=== PATIENT | female | born 1970 | race African-American/Black ===

== ENCOUNTER 2022-05-18 18:19 | Outpatient (REF) | payer OTHER, SELFPAY ==
[2022-05-18 18:45] LABS: COVID-19 Test Positive (Negative); IDNOW Serial# 16C4AD1C
== END 2022-05-18 18:20 | disposition home or self-care (01) ==
LOC: HO.LAB 18:19
PROVIDERS: Visit Provider Internal Medicine
DX: Z20.822 Contact with and (suspected) exposure to COVID-19 (principal)
CPT/HCPCS: 87635

== ENCOUNTER 2022-06-03 12:17 | Emergency (ER) | payer OTHER, SELFPAY ==
--- NOTE | 2022-06-03 12:23 | ED_ITS ---
HPI - General Adult General Chief complaint: Ear Problems Stated complaint: R ear bleeding/Nose bleeding Time Seen by Provider: 06/03/22 12:27 Source: patient Mode of arrival: ambulatory History of Present Illness HPI narrative: 51-year-old female with a past medical history of anxiety, asthma, GERD, Russel's, SLE, COVID-19 positive 05/07/2022, presenting to the ED complaining of right ear pain, & bloody discharge x3 days. Also reports intermittent right nare epistaxis x3 days. Denies fever, chills, worsening cough, SOB/CP, travel. Onset (ago): day(s) Related Data Home Medications Medication Instructions Recorded Confirmed albuterol sulfate 90 mcg/actuation 2 puff inhalation Q6H PRN 03/13/22 03/13/22 aerosol inhaler (ProAir HFA) fluticasone propionate 110 2 puff inhalation BID 03/13/22 03/13/22 mcg/actuation HFA aerosol inhaler (Flovent HFA) triamcinolone acetonide 55 mcg 1 spray intranasal DAILY 03/13/22 03/13/22 nasal spray aerosol (Nasacort) Previous Rx's Medication Instructions Recorded amoxicillin 875 mg-potassium 1 tab PO BID 7 days #14 tabs 06/03/22 clavulanate 125 mg tablet ciprofloxacin 0.3 %-dexamethasone 4 drp otic (ears) BID 7 days #7.5 06/03/22 0.1 % ear drops,suspension mL (Ciprodex) fluticasone propionate 50 2 spray intranasal DAILY #16 grams 06/03/22 mcg/actuation nasal spray,suspension (Flonase Allergy Relief) Allergies Allergy/AdvReac Type Severity Reaction Status Date / Time No Known Allergies Allergy Verified 03/13/22 06:59 Review of Systems Review of Systems: Constitutional: No Fever, No Chills ENT/Mouth: + Ear Pain, + Nasal Congestion, No Sinus Pain, No Hoarseness, No sore throat, + Rhinorrhea, No Swallowing Difficulty Cardiovascular: No Chest Pain, No SOB Respiratory: + Cough, No Sputum, No Wheezing Gastrointestinal: No Nausea, No Vomiting, No Diarrhea, No Constipation, No Abdominal pain Genitourinary: No Dysuria, No Urinary Frequency, No Hematuria, No Flank Pain Musculoskeletal: No joint pain, No Myalgias, No Joint Swelling Skin: No Skin Lesions, No rash Neuro: No Weakness Yes all other systems are reviewed and are negative Constitutional: Constitutional: Reports as per [facility] Past Medical History Attestation statement: The following information was validated with the patient. Medical History Abnormal chest CT Allergic rhinitis Anxiety Asthma Complete situs inversus with dextrocardia Consolidation lung COVID GERD (gastroesophageal reflux disease) H/O Russel thyroiditis Menorrhagia Organic depressive disorder Pleural effusion SLE (systemic lupus erythematosus) Vitamin D deficiency Surgical History H/O tubal ligation History of esophagogastroduodenoscopy (EGD) Presence of silicone breast implant Family History Family History Mother Asthma CAD (coronary artery disease) Myocardial infarct Hypertension Hypercholesteremia Sister Arthritis Sister Diabetes Social History Social History Advance Directives: No Advance Directives Information Provided: Yes Physical Exam ED Vital Signs: Vital Signs - 24 hr 06/03/22 12:25 Temperature 98.9 F Pulse Rate 75 Respiratory Rate 18 Blood Pressure 114/58 L Pulse Oximetry 99 Oxygen Delivery Method Room Air BMI result Body Mass Index 17.7 Const General: cooperative, healthy appearing and no acute distress Orientation/consciousness: patient oriented x3 Limitations: no limitations HENMT Other: +congestion Head: Yes normal to inspection and Yes atraumatic Ears: hearing grossly normal bilaterally, mastoids normal, Abnormal EAC present EAC tenderness on the right and otic discharge bloody and purulent and TM abnormal erythematous on the right, with fluid behind the TM on the right and with loss of landmarks General nose exam: Normal external nose present, no nasal discharge noted, no epistaxis and Other nasal findings present (Small/clotted abrasion noted to right anterior nare without active bleeding) Face and sinus: Yes normal facial exam Mouth: Normal oral and palatal mucosa present and no drooling Throat: Yes posterior oropharynx normal, Yes tonsils normal, No uvula midline, No peritonsillar mass and No uvula laterally displaced Eyes General: appearance normal, both eyes and all related structures EOM: EOMs intact bilaterally Neck Neck: Yes normal visual inspection and Yes no meningeal signs Resp Effort & Inspection: normal respiratory effort and no respiratory distress Auscultation: clear to auscultation bilaterally Cardio Rate: regular rate Heart sounds: S1 normal heart sound present and S2 normal heart sound present Skin Rashes: no rashes Wounds: no wounds Neuro General: patient oriented x3, tone normal and no meningeal signs Gait exam (Neuro): Normal gait present Extrem General: Yes normal to inspection Medical Decision Making Medical Decision Making MDM Narrative: 51-year-old female with a past medical history of anxiety, asthma, GERD, Russel's, SLE, COVID-19 positive 05/07/2022, presenting to the ED complaining of right ear pain, & bloody discharge x3 days. On exam vital signs stable, NAD, nontoxic appearing, no active epistaxis at this time. Right TM with noted effusion and external auditory swelling/discharge. Mastoids WNL, or pharynx WNL, uvula midline, talking in complete sentences. Concern for otitis media/externa and viral syndrome. 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 antibiotics, otic drops, PCP follow-up Results discussed with patient including worrisome signs and symptoms and strict return precautions, and when to return to the emergency department. They verbalized understanding and feel safe for discharge at this time. Differential Diagnosis Differential Diagnoses: The differential diagnosis associated with the presentation includes as above Discharge Plan Discharge Clinical Impression: Otitis externa, Otitis media Patient Disposition: Home, Self-Care Instructions: Otitis Externa (ED), Ear Infection (ED) Additional Instructions: You have an internal and external ear infection. Ciprodex is an antibiotic drop with steroid, use as prescribed. In addition Augmentin is antibiotic Flonase as a nasal decongestant Rest. Stay hydrated Follow-up with her doctor If symptoms persist or worsen return to the ED Prescriptions: New ciprofloxacin-dexamethasone [Ciprodex] 0.3-0.1 % drops,suspension 4 drp otic (ears) BID 7 Days Qty: 7.5 0RF fluticasone propionate [Flonase Allergy Relief] 50 mcg/actuation spray,suspension 2 spray intranasal DAILY Qty: 16 0RF Rx Instructions: administer into each nostril amoxicillin-pot clavulanate 875-125 mg tablet 1 tab PO BID 7 Days Qty: 14 0RF No Action albuterol sulfate [ProAir HFA] 90 mcg/actuation HFA aerosol inhaler 2 puff inhalation Q6H PRN fluticasone propionate [Flovent HFA] 110 mcg/actuation HFA aerosol inhaler 2 puff inhalation BID triamcinolone acetonide [Nasacort] 55 mcg aerosol,spray 1 spray intranasal DAILY Rx Instructions: administer into each nostril Referrals: Physician,Unknown J [Physician] - 3 days Stand Alone Forms: Work/School Release
[2022-06-03 12:25] VITALS: BP 114/58; PULSE 75; RESP 18; TEMP 37.2; O2SAT 99; BMI 17.7
== END 2022-06-03 12:57 | disposition home or self-care (01) ==
PROVIDERS: Emergency Provider Emergency Medicine; PCP Physician Assistant
DX: H60.91 Unspecified otitis externa, right ear (principal); H66.91 Otitis media, unspecified, right ear; I10 Essential (primary) hypertension; E78.00 Pure hypercholesterolemia, unspecified
CPT/HCPCS: 99282; 99283

== ENCOUNTER 2022-08-07 19:31 | Emergency (ER) | payer OTHER, SELFPAY ==
--- NOTE | ~2022-08-07 | US_ITS ---
EXAMINATION: US ABDOMEN LIMITED CLINICAL INFORMATION: Increased liver function tests. COMPARISON: None available. TECHNIQUE: Real-time imaging of the right upper quadrant abdominal viscera. FINDINGS: PANCREAS: Normal. LIVER: The liver is normal in size. The liver contour is normal. Parenchymal echogenicity is normal. There are multiple simple cysts, the largest within the left lobe measuring 1.2 cm in maximal diameter. There is no intrahepatic biliary duct dilatation seen. GALLBLADDER: Normal. The gallbladder is physiologically distended without evidence of stones, sludge, polyps, wall thickening or pericholecystic fluid. COMMON BILE DUCT: Normal in caliber measuring 0.3 cm in diameter. LEFT KIDNEY: Normal. No hydronephrosis. No renal calculi or focal parenchymal lesions. The kidney measures 9.9 cm in maximum dimension. FREE FLUID: None. OTHER: A situs inversus is noted. US/US abdomen limited IMPRESSION: 1. Multiple benign, simple hepatic cysts are incidentally noted, for which no imaging follow-up is recommended. 2. There is a situs inversus. 3. Otherwise, unremarkable examination.
--- NOTE | 2022-08-07 19:34 | ECG_ITS ---
Test Reason : CHEST PRESSURE Blood Pressure : / mmHG Vent. Rate : 107 BPM Atrial Rate : 107 BPM P-R Int : 156 ms QRS Dur : 052 ms QT Int : 294 ms P-R-T Axes : 099 197 096 degrees QTc Int : 392 ms Suspect limb lead reversal, interpretation assumes no reversal Sinus tachycardia Possible Left atrial enlargement Low voltage QRS Anterolateral infarct , age undetermined Abnormal ECG No previous ECGs available Referred By: Doron Bonilla Electronically Signed By:Mor Chris
[2022-08-07 19:51] VITALS: BP 132/74; PULSE 116; RESP 20; TEMP 38; O2SAT 93; BMI 17.7
--- NOTE | 2022-08-07 19:52 | ED.GENADULT ---
HPI - General Adult General Chief complaint: Upper Respiratory Symptoms <MAYURI Ham - Last Filed: 08/07/22 19:55> Stated complaint: Chest Pressure/ Cough <MAYURI Ham - Last Filed: 08/07/22 19:55> Time Seen by Provider: 08/07/22 21:31 <MAYURI Ham - Last Filed: 08/07/22 19:55> Source: patient <Momo Machado MD - Last Filed: 08/07/22 23:12> Mode of arrival: ambulatory <Momo Machado MD - Last Filed: 08/07/22 23:12> Limitations: no limitations <Momo Machado MD - Last Filed: 08/07/22 23:12> History of Present Illness HPI narrative: Patient history of asthma, lupus, arthritis comes here for cough for last 5 days and mid chest pain and cough cough is mostly dry 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 Patient had lab workup done which showed elevated LFTs. Patient denies any abdominal pain no history of hepatitis no prior elevated liver function test no nausea no vomiting no Tylenol intake <Momo Machado MD - Last Filed: 08/07/22 23:12> Related Data Home medications: Home Medications Medication Instructions Recorded Confirmed albuterol sulfate 90 mcg/actuation 2 puff inhalation Q6H PRN 03/13/22 03/13/22 aerosol inhaler (ProAir HFA) fluticasone propionate 110 2 puff inhalation BID 03/13/22 03/13/22 mcg/actuation HFA aerosol inhaler (Flovent HFA) triamcinolone acetonide 55 mcg 1 spray intranasal DAILY 03/13/22 03/13/22 nasal spray aerosol (Nasacort) Previous Rx's Medication Instructions Recorded amoxicillin 875 mg-potassium 1 tab PO BID 7 days #14 tabs 06/03/22 clavulanate 125 mg tablet ciprofloxacin 0.3 %-dexamethasone 4 drp otic (ears) BID 7 days #7.5 06/03/22 0.1 % ear drops,suspension mL (Ciprodex) fluticasone propionate 50 2 spray intranasal DAILY #16 grams 06/03/22 mcg/actuation nasal spray,suspension (Flonase Allergy Relief) benzonatate 200 mg capsule 200 mg PO TID PRN cough #30 caps 08/07/22 prednisone 20 mg tablet 40 mg PO DAILY #10 tabs 08/07/22 <MAYURI Ham - Last Filed: 08/07/22 19:55> Allergies/adverse reactions: Allergies Allergy/AdvReac Type Severity Reaction Status Date / Time No Known Allergies Allergy Verified 08/07/22 19:55 <MAYURI Ham - Last Filed: 08/07/22 19:55> Review of Systems Review of Systems: Yes all other systems are reviewed and are negative <Momo Machado MD - Last Filed: 08/07/22 23:12> [facility] Past Medical History Medical History: Medical History (Updated 08/07/22 @ 23:12 by Momo Machado MD) Abnormal chest CT Allergic rhinitis Anxiety Asthma Complete situs inversus with dextrocardia Consolidation lung COVID GERD (gastroesophageal reflux disease) H/O Russel thyroiditis Menorrhagia Organic depressive disorder Pleural effusion Situs inversus SLE (systemic lupus erythematosus) Vitamin D deficiency <MAYURI Ham - Last Filed: 08/07/22 19:55> Surgical History: Surgical History H/O tubal ligation History of esophagogastroduodenoscopy (EGD) Presence of silicone breast implant <MAYURI Ham - Last Filed: 08/07/22 19:55> Family History Family History: Family History Mother Asthma CAD (coronary artery disease) Myocardial infarct Hypertension Hypercholesteremia Sister Arthritis Sister Diabetes <MAYURI Ham - Last Filed: 08/07/22 19:55> Social History Social History: Social History Advance Directives: No Advance Directives Information Provided: No <MAYURI Ham - Last Filed: 08/07/22 19:55> Physical Exam ED Vital Signs: Vital Signs - 24 hr 08/07/22 19:51 08/07/22 22:43 Temperature 100.4 F Pulse Rate 116 H 86 Respiratory Rate 20 22 H Blood Pressure 132/74 99/60 Pulse Oximetry 93 93 Oxygen Delivery Method Room Air Room Air BMI result Body Mass Index 17.7 <MAYURI Ham - Last Filed: 08/07/22 19:55> Vital Signs - 24 hr 08/07/22 19:51 08/07/22 22:43 Temperature 100.4 F Pulse Rate 116 H 86 Respiratory Rate 20 22 H Blood Pressure 132/74 99/60 Pulse Oximetry 93 93 Oxygen Delivery Method Room Air Room Air BMI result Body Mass Index 17.7 <Momo Machado MD - Last Filed: 08/07/22 23:12> Appearance: Alert. Oriented X3. No acute distress. Situs inversus Eyes: No pallor/ icterus ENT: Pharynx normal. Oral Mucosa moist Neck: Normal inspection. Neck supple. CVS: Normal heart rate and rhythm. Pulses normal. Respiratory: No respiratory distress. Equal air entry bilateral, no wheezing/rales/rhonchi Abdomen: Soft and nontender. Bowel sounds are present, no mass palpable, no CVA tenderness Skin: Skin warm and dry. Normal skin color. Normal skin turgor. Extremities: No lower extremity edema. No calf tenderness Neuro: Oriented X 3. <Momo Machado MD - Last Filed: 08/07/22 23:12> Course Course Course Narrative: This is an RME: Additional HPI, ROS, PE not included below will be deferred to primary provider. 51 year old female with PMHH of asthma, SLE, and arthritis presents to the ED with chest pain, cough and headache. Patient reports she has been using her albuterol inhaler more frequently since her symptoms started. She denies sick contacts or recent travel. Patient reports she has not been eating normally, and her symptoms are exacerbated by coughing. PE: Fever at 100.4F, slightly tachycardic, suspected from viral illness unlikely sepsis Plan: Labs, tylenol ordered <MAYURI Ham - Last Filed: 08/07/22 19:55> Medications Administered Discontinued Medications Generic Name Dose Route Start Last Admin Trade Name Freq PRN Reason Stop Dose Admin Acetaminophen 650 mg 08/07/22 19:54 08/07/22 20:54 Acetaminophen 325 Mg Tablet PO 08/07/22 19:55 650 mg ONCE ONE Administration Benzonatate 200 mg 08/07/22 21:43 08/07/22 22:03 Benzonatate 100 Mg Capsule PO 08/07/22 21:44 200 mg ONCE ONE Administration Prednisone 40 mg 08/07/22 21:43 08/07/22 22:03 Prednisone 20 Mg Tablet PO 08/07/22 21:44 40 mg ONCE ONE Administration <MAYURI Ham - Last Filed: 08/07/22 19:55> Medications Administered Discontinued Medications Generic Name Dose Route Start Last Admin Trade Name Lokesh PRN Reason Stop Dose Admin Acetaminophen 650 mg 08/07/22 19:54 08/07/22 20:54 Acetaminophen 325 Mg Tablet PO 08/07/22 19:55 650 mg ONCE ONE Administration Benzonatate 200 mg 08/07/22 21:43 08/07/22 22:03 Benzonatate 100 Mg Capsule PO 08/07/22 21:44 200 mg ONCE ONE Administration Prednisone 40 mg 08/07/22 21:43 08/07/22 22:03 Prednisone 20 Mg Tablet PO 08/07/22 21:44 40 mg ONCE ONE Administration <Momo Machado MD - Last Filed: 08/07/22 23:12> Medical Decision Making Lab Data Result Diagrams: 08/07/22 20:53 08/07/22 20:53 <MAYURI Ham - Last Filed: 08/07/22 19:55> Labs: Lab Results 08/07/22 08/07/22 08/07/22 Range/Units 20:53 20:53 20:53 WBC 6.6 (4.8-10.8) X10*3/uL RBC 3.68 L (4.20-5.50) X10*6/uL Hgb 11.9 L (12.0-16.0) g/dl Hct 34.9 L (37.0-47.0) % MCV 94.8 (80.0-98.0) fL MCH 32.3 (27.0-33.0) pg MCHC 34.1 (31.0-35.0) g/dl RDW 14.4 (11.0-16.0) % Plt Count 87 L (160-400) X10*3/uL MPV 12.7 H (9.4-12.3) fL Immature Gran % (Auto) 0.2 (0.0-0.4) % Neut % (Auto) 62.0 (45-73) % Lymph % (Auto) 25.2 (20-40) % [place] % (Auto) 11.5 H (2-11) % Eos % (Auto) 0.8 (0-4) % Baso % (Auto) 0.3 (0-2) % Lymph # (Auto) 1.7 (1.2-4.9) X10*3/uL [place] # (Auto) 0.8 (0.1-1.2) X10*3/uL Eos # (Auto) 0.1 (0.0-0.4) X10*3/uL Baso # (Auto) 0.0 (0.0-0.2) X10*3/uL Abs Immat Gran (auto) 0.01 (0.00-0.03) X10*3/uL Absolute Neuts (auto) 4.1 (2.0-8.3) x10*3/uL Absolute Nucleated RBC 0.000 (0.0-0.012) X10*3/uL Nucleated RBC % (auto) 0.0 (0.0-0.2) /100WBC Sodium 140 (135-145) mmol/L Potassium 4.2 (3.3-5.1) mmol/L Chloride 104 (96-108) mmol/L Carbon Dioxide 27 (22-29) mmol/L Anion Gap 13 (12-20) BUN 13 (9-16) mg/dL Creatinine 0.82 (0.5-1.4) mg/dL Estim Creat Clear Calc 63.2 Estimated GFR > 60 Random Glucose 84 (60-115) mg/dL Calcium 9.7 (8.4-10.2) mg/dL Magnesium 1.9 (1.6-2.6) mg/dL Total Bilirubin 1.0 (0.0-1.0) mg/dL AST 200 H (5-31) U/L ALT 207 H (0-31) U/L Alkaline Phosphatase 169 H (39-117) U/L Troponin I High Sens < 2.7 (<3.5-17.0) ng/L B-Natriuretic Peptide (<100) pg/mL Total Protein 7.0 (6.5-8.0) g/dL Albumin 3.7 (3.5-5.0) g/dL COVID-19 (HIGINIO) (Negative) COVID-19 Clin Com Influenza Type A (WALTER) (Negative) Influenza Type B (WALTER) (Negative) Influenza A & B Note 08/07/22 08/07/22 08/07/22 Range/Units 20:53 20:53 20:54 WBC (4.8-10.8) X10*3/uL RBC (4.20-5.50) X10*6/uL Hgb (12.0-16.0) g/dl Hct (37.0-47.0) % MCV (80.0-98.0) fL MCH (27.0-33.0) pg MCHC (31.0-35.0) g/dl RDW (11.0-16.0) % Plt Count (160-400) X10*3/uL MPV (9.4-12.3) fL Immature Gran % (Auto) (0.0-0.4) % Neut % (Auto) (45-73) % Lymph % (Auto) (20-40) % [place] % (Auto) (2-11) % Eos % (Auto) (0-4) % Baso % (Auto) (0-2) % Lymph # (Auto) (1.2-4.9) X10*3/uL [place] # (Auto) (0.1-1.2) X10*3/uL Eos # (Auto) (0.0-0.4) X10*3/uL Baso # (Auto) (0.0-0.2) X10*3/uL Abs Immat Gran (auto) (0.00-0.03) X10*3/uL Absolute Neuts (auto) (2.0-8.3) x10*3/uL Absolute Nucleated RBC (0.0-0.012) X10*3/uL Nucleated RBC % (auto) (0.0-0.2) /100WBC Sodium (135-145) mmol/L Potassium (3.3-5.1) mmol/L Chloride (96-108) mmol/L Carbon Dioxide (22-29) mmol/L Anion Gap (12-20) BUN (9-16) mg/dL Creatinine (0.5-1.4) mg/dL Estim Creat Clear Calc Estimated GFR Random Glucose (60-115) mg/dL Calcium (8.4-10.2) mg/dL Magnesium (1.6-2.6) mg/dL Total Bilirubin (0.0-1.0) mg/dL AST (5-31) U/L ALT (0-31) U/L Alkaline Phosphatase (39-117) U/L Troponin I High Sens (<3.5-17.0) ng/L B-Natriuretic Peptide 23 (<100) pg/mL Total Protein (6.5-8.0) g/dL Albumin (3.5-5.0) g/dL COVID-19 (HIGINIO) Negative (Negative) COVID-19 Clin Com See Note Influenza Type A (WALTER) Negative (Negative) Influenza Type B (WALTER) Negative (Negative) Influenza A & B Note See Note <MAYURI Ham - Last Filed: 08/07/22 19:55> Lab Results 08/07/22 08/07/22 08/07/22 Range/Units 20:53 20:53 20:53 WBC 6.6 (4.8-10.8) X10*3/uL RBC 3.68 L (4.20-5.50) X10*6/uL Hgb 11.9 L (12.0-16.0) g/dl Hct 34.9 L (37.0-47.0) % MCV 94.8 (80.0-98.0) fL MCH 32.3 (27.0-33.0) pg MCHC 34.1 (31.0-35.0) g/dl RDW 14.4 (11.0-16.0) % Plt Count 87 L (160-400) X10*3/uL MPV 12.7 H (9.4-12.3) fL Immature Gran % (Auto) 0.2 (0.0-0.4) % Neut % (Auto) 62.0 (45-73) % Lymph % (Auto) 25.2 (20-40) % [place] % (Auto) 11.5 H (2-11) % Eos % (Auto) 0.8 (0-4) % Baso % (Auto) 0.3 (0-2) % Lymph # (Auto) 1.7 (1.2-4.9) X10*3/uL [place] # (Auto) 0.8 (0.1-1.2) X10*3/uL Eos # (Auto) 0.1 (0.0-0.4) X10*3/uL Baso # (Auto) 0.0 (0.0-0.2) X10*3/uL Abs Immat Gran (auto) 0.01 (0.00-0.03) X10*3/uL Absolute Neuts (auto) 4.1 (2.0-8.3) x10*3/uL Absolute Nucleated RBC 0.000 (0.0-0.012) X10*3/uL Nucleated RBC % (auto) 0.0 (0.0-0.2) /100WBC Sodium 140 (135-145) mmol/L Potassium 4.2 (3.3-5.1) mmol/L Chloride 104 (96-108) mmol/L Carbon Dioxide 27 (22-29) mmol/L Anion Gap 13 (12-20) BUN 13 (9-16) mg/dL Creatinine 0.82 (0.5-1.4) mg/dL Estim Creat Clear Calc 63.2 Estimated GFR > 60 Random Glucose 84 (60-115) mg/dL Calcium 9.7 (8.4-10.2) mg/dL Magnesium 1.9 (1.6-2.6) mg/dL Total Bilirubin 1.0 (0.0-1.0) mg/dL AST 200 H (5-31) U/L ALT 207 H (0-31) U/L Alkaline Phosphatase 169 H (39-117) U/L Troponin I High Sens < 2.7 (<3.5-17.0) ng/L B-Natriuretic Peptide (<100) pg/mL Total Protein 7.0 (6.5-8.0) g/dL Albumin 3.7 (3.5-5.0) g/dL COVID-19 (HIGINIO) (Negative) COVID-19 Clin Com Influenza Type A (WALTER) (Negative) Influenza Type B (WALTER) (Negative) Influenza A & B Note 08/07/22 08/07/22 08/07/22 Range/Units 20:53 20:53 20:54 WBC (4.8-10.8) X10*3/uL RBC (4.20-5.50) X10*6/uL Hgb (12.0-16.0) g/dl Hct (37.0-47.0) % MCV (80.0-98.0) fL MCH (27.0-33.0) pg MCHC (31.0-35.0) g/dl RDW (11.0-16.0) % Plt Count (160-400) X10*3/uL MPV (9.4-12.3) fL Immature Gran % (Auto) (0.0-0.4) % Neut % (Auto) (45-73) % Lymph % (Auto) (20-40) % [place] % (Auto) (2-11) % Eos % (Auto) (0-4) % Baso % (Auto) (0-2) % Lymph # (Auto) (1.2-4.9) X10*3/uL [place] # (Auto) (0.1-1.2) X10*3/uL Eos # (Auto) (0.0-0.4) X10*3/uL Baso # (Auto) (0.0-0.2) X10*3/uL Abs Immat Gran (auto) (0.00-0.03) X10*3/uL Absolute Neuts (auto) (2.0-8.3) x10*3/uL Absolute Nucleated RBC (0.0-0.012) X10*3/uL Nucleated RBC % (auto) (0.0-0.2) /100WBC Sodium (135-145) mmol/L Potassium (3.3-5.1) mmol/L Chloride (96-108) mmol/L Carbon Dioxide (22-29) mmol/L Anion Gap (12-20) BUN (9-16) mg/dL Creatinine (0.5-1.4) mg/dL Estim Creat Clear Calc Estimated GFR Random Glucose (60-115) mg/dL Calcium (8.4-10.2) mg/dL Magnesium (1.6-2.6) mg/dL Total Bilirubin (0.0-1.0) mg/dL AST (5-31) U/L ALT (0-31) U/L Alkaline Phosphatase (39-117) U/L Troponin I High Sens (<3.5-17.0) ng/L B-Natriuretic Peptide 23 (<100) pg/mL Total Protein (6.5-8.0) g/dL Albumin (3.5-5.0) g/dL COVID-19 (HIGINIO) Negative (Negative) COVID-19 Clin Com See Note Influenza Type A (WALTER) Negative (Negative) Influenza Type B (WALTER) Negative (Negative) Influenza A & B Note See Note <Momo Machado MD - Last Filed: 08/07/22 23:12> Discharge Plan Discharge Clinical Impression: Bronchitis <MAYURI Ham - Last Filed: 08/07/22 19:55> Patient Disposition: Home, Self-Care <MAYURI Ham - Last Filed: 08/07/22 19:55> Instructions: Acute Bronchitis (ED) <MAYURI Ham - Last Filed: 08/07/22 19:55> Additional Instructions: Take prednisone continue to use inhaler and take cough drops as prescribed Incidentally noticed that your liver enzymes are elevated 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 <MAYURI Ham - Last Filed: 08/07/22 19:55> Prescriptions: New benzonatate 200 mg capsule 200 mg PO TID PRN (Reason: cough) Qty: 30 0RF prednisone 20 mg tablet 40 mg PO DAILY Qty: 10 0RF No Action ciprofloxacin-dexamethasone [Ciprodex] 0.3-0.1 % drops,suspension 4 drp otic (ears) BID 7 Days Qty: 7.5 0RF fluticasone propionate [Flonase Allergy Relief] 50 mcg/actuation spray,suspension 2 spray intranasal DAILY Qty: 16 0RF Rx Instructions: administer into each nostril amoxicillin-pot clavulanate 875-125 mg tablet 1 tab PO BID 7 Days Qty: 14 0RF albuterol sulfate [ProAir HFA] 90 mcg/actuation HFA aerosol inhaler 2 puff inhalation Q6H PRN fluticasone propionate [Flovent HFA] 110 mcg/actuation HFA aerosol inhaler 2 puff inhalation BID triamcinolone acetonide [Nasacort] 55 mcg aerosol,spray 1 spray intranasal DAILY Rx Instructions: administer into each nostril <MAYURI Ham - Last Filed: 08/07/22 19:55> Referrals: Lily Lofton MD [Physician] - 1 week <MAYURI Ham - Last Filed: 08/07/22 19:55>
--- NOTE | 2022-08-07 20:05 | ECG_ITS ---
Test Reason : REPEAT RT SIDED EKG Blood Pressure : / mmHG Vent. Rate : 110 BPM Atrial Rate : 110 BPM P-R Int : 146 ms QRS Dur : 062 ms QT Int : 308 ms P-R-T Axes : 102 177 112 degrees QTc Int : 416 ms Suspect limb lead reversal, interpretation assumes no reversal Sinus tachycardia Septal infarct (cited on or before 07-AUG-2022) Lateral infarct (cited on or before 07-AUG-2022) Abnormal ECG When compared with ECG of 07-AUG-2022 20:00, Serial changes of Septal infarct Present Referred By: Doron Bonilla Electronically Signed By:Mor Chris
[2022-08-07] MEDS: Acetaminophen 325 MG TABLET 650 MG PO (20:54)
[2022-08-07 21:06] LABS: MANUAL DIFF FLAG NO
[2022-08-07 21:15] LABS: Basophils Percent Auto 0.3 % (0-2); Eosinophils Absolute Auto 0.1 X10*3/uL (0.0-0.4); Eosinophils Percent Auto 0.8 % (0-4); Hematocrit 34.9 % (37.0-47.0); Hemoglobin 11.9 g/dl (12.0-16.0); Imm Gran Abs Auto 0.01 X10*3/uL (0.00-0.03); Imm Gran Pct Auto 0.2 % (0.0-0.4); Lymphocytes Absolute Auto 1.7 X10*3/uL (1.2-4.9); Lymphocytes Percent Auto 25.2 % (20-40); Mean Corpuscular HGB Conc 34.1 g/dl (31.0-35.0); Mean Corpuscular Hemoglobin 32.3 pg (27.0-33.0); Mean Corpuscular Volume 94.8 fL (80.0-98.0); Mean Platelet Volume 12.7 fL (9.4-12.3); Monocytes Absolute Auto 0.8 X10*3/uL (0.1-1.2); Monocytes Percent Auto 11.5 % (2-11); Neutrophils Absolute Auto 4.1 x10*3/uL (2.0-8.3); Red Blood Count 3.68 X10*6/uL (4.20-5.50); Red Cell Distribution Width 14.4 % (11.0-16.0); White Blood Count 6.6 X10*3/uL (4.8-10.8)
[2022-08-07 21:16] LABS: Platelet Count 87 X10*3/uL (160-400)
[2022-08-07 21:20] LABS: IDNOW Serial# 08D9AD1C; Influenza A Negative (Negative); Influenza B2 Negative (Negative)
[2022-08-07 21:20] LABS: COVID-19 Test Negative (Negative); IDNOW Serial# BCCEAD1C
[2022-08-07 21:24] LABS: Alanine Aminotransferase 207 U/L (0-31); Albumin Level 3.7 g/dL (3.5-5.0); Alkaline Phosphatase 169 U/L (39-117); Anion Gap 13 (12-20); Aspartate Amino Transferase 200 U/L (5-31); Blood Urea Nitrogen 13 mg/dL (9-16); Calcium 9.7 mg/dL (8.4-10.2); Carbon Dioxide 27 mmol/L (22-29); Chloride 104 mmol/L (96-108); Creatinine Clr Calc Pharmacy 63.2; Estimated Glomerular Filt Rate > 60; Glucose Random 84 mg/dL (60-115); Magnesium 1.9 mg/dL (1.6-2.6); Potassium 4.2 mmol/L (3.3-5.1); Sodium 140 mmol/L (135-145)
[2022-08-07 21:30] LABS: B Type Natriuretic Peptide 23 pg/mL (<100)
[2022-08-07 21:34] LABS: Troponin-I High Sensitivity < 2.7 ng/L (<3.5-17.0)
[2022-08-07] MEDS: Benzonatate 100 MG CAPSULE 200 MG PO (22:03)
[2022-08-07] MEDS: predniSONE 20 MG TABLET 40 MG PO (22:03)
[2022-08-07 22:43] VITALS: BP 99/60; PULSE 86; RESP 22; O2SAT 93
== END 2022-08-07 23:20 | disposition home or self-care (01) ==
PROVIDERS: Physician Assistant; Emergency Provider Internal Medicine; PCP Physician Assistant
DX: J40 Bronchitis, not specified as acute or chronic (principal); R00.0 Tachycardia, unspecified; R74.8 Abnormal levels of other serum enzymes; Z20.822 Contact with and (suspected) exposure to COVID-19; Z79.899 Other long term (current) drug therapy
CPT/HCPCS: 76705; 80053; 83735; 83880; 84484; 85025; 87502; 87635; 93005; 99284

== ENCOUNTER 2023-06-07 15:25 | Emergency (ER) | payer OTHER, SELFPAY ==
--- NOTE | ~2023-06-07 | CT_ITS ---
EXAMINATION: CT HEAD WITHOUT CONTRAST CLINICAL INFORMATION: Head injury, headache COMPARISON: None available. TECHNIQUE: Contiguous axial imaging was performed from the skull base to vertex without intravenous administration of contrast. This CT examination was performed using dose optimization techniques as appropriate, variously including the following: *Automated exposure control *Adjustment of mA and/or kV according to patient size (this includes techniques or standardized protocols for targeted exams where dose is matched to indication/reason for exam; i.e. extremities or head) *Use of iterative reconstruction technique DLP: 583 mGy-cm FINDINGS: There is no evidence of acute intracranial hemorrhage or edematous territorial infarction. No abnormal mass effect or midline shift is seen. [place] to white matter differentiation is well preserved. No abnormal extra-axial fluid collections are identified. The ventricles are normal in size. No abnormal attenuation in the brain parenchyma. The cerebellum is appropriately positioned. Basal cisterns are patent. No acute calvarial fracture.. Paranasal sinuses and mastoid air cells are well-aerated. CT/CT head/brain wo IV con IMPRESSION: No CT evidence of acute intracranial hemorrhage or edematous territorial infarction.
[2023-06-07 15:27] VITALS: BP 134/62; PULSE 86; RESP 18; TEMP 36.4; O2SAT 100; BMI 19.4
--- NOTE | 2023-06-07 15:27 | ED_ITS ---
HPI - General Adult General Chief complaint: Head Injury Stated complaint: hit head while working/[employer] [facility] Time Seen by Provider: 06/07/23 15:59 Source: patient Mode of arrival: ambulatory Limitations: language barrier (Maori-speaking medical intern utilized) History of Present Illness HPI narrative: Patient is a 52-year-old female presenting to emergency department for evaluation of headache. Reports 4 days ago while at work sustained a head strike accidentally by bumping it on a shelf, denies any loss consciousness. Continues to have a persistent frontal headache 10/10 relieved with acetaminophen, blurry vision. Denies neck pain, dizziness, vomiting, numbness or tingling of extremities. Related Data Home Medications Medication Instructions Recorded Confirmed albuterol sulfate 90 mcg/actuation 2 puff inhalation Q6H PRN 03/13/22 03/13/22 aerosol inhaler (ProAir HFA) fluticasone propionate 110 2 puff inhalation BID 03/13/22 03/13/22 mcg/actuation HFA aerosol inhaler (Flovent HFA) triamcinolone acetonide 55 mcg 1 spray intranasal DAILY 03/13/22 03/13/22 nasal spray aerosol (Nasacort) Previous Rx's Medication Instructions Recorded amoxicillin 875 mg-potassium 1 tab PO BID 7 days #14 tabs 06/03/22 clavulanate 125 mg tablet ciprofloxacin 0.3 %-dexamethasone 4 drp otic (ears) BID 7 days #7.5 06/03/22 0.1 % ear drops,suspension mL (Ciprodex) fluticasone propionate 50 2 spray intranasal DAILY #16 grams 06/03/22 mcg/actuation nasal spray,suspension (Flonase Allergy Relief) benzonatate 200 mg capsule 200 mg PO TID PRN cough #30 caps 08/07/22 prednisone 20 mg tablet 40 mg (2 x 20 mg) PO DAILY #10 tabs 08/07/22 Allergies Allergy/AdvReac Type Severity Reaction Status Date / Time No Known Allergies Allergy Verified 08/07/22 19:55 Review of Systems Review of Systems: Yes all other systems are reviewed and are negative [facility] Past Medical History Attestation statement: The following information was validated with the patient. 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 Vitamin D deficiency GERD (gastroesophageal reflux disease) H/O Russel thyroiditis SLE (systemic lupus erythematosus) Anxiety Organic depressive disorder Menorrhagia Pleural effusion Consolidation lung Abnormal chest CT Allergic rhinitis Asthma COVID Surgical History H/O tubal ligation Presence of silicone breast implant History of esophagogastroduodenoscopy (EGD) Family History Family History Mother Asthma CAD (coronary artery disease) Myocardial infarct Hypertension Hypercholesteremia Sister Arthritis Sister Diabetes Social History Social History Advance Directives: No Advance Directives Information Provided: No Physical Exam ED Vital Signs: Vital Signs - 24 hr 06/07/23 15:27 Temperature 97.5 F Pulse Rate 86 Respiratory Rate 18 Blood Pressure 134/62 Pulse Oximetry 100 Oxygen Delivery Method Room Air BMI result Body Mass Index 19.4 Appearance: Alert.?Oriented to person, place and time. No acute d istress.?Normal affect. Head: Normocephalic Eyes: Pupils equal, round and reactive to light. EOMI. Conjunctiva and sclera normal? No Urias sign noted. No raccoon eyes noted ENT: No septal hematoma, nares patent bilaterally. External auditory canal normal tympanic membrane pearly small and intact bilaterally. Dentition normal, no fractured teeth. No lesions or lacerations of oropharynx. Uvula midline. Moist mucous membranes. Neck: Normal inspection.? Neck supple.??No palpable tenderness, step-off, deformities. CVS: Heart sounds normal. Normal heart rate and rhythm.? Pulses normal.?? Respiratory: No respiratory distress.? Lung sounds clear to auscultation bila terally?? Abdomen: Soft and non-tender. Normoactive bowel sounds. ?? Skin: Skin warm and dry.? Normal skin color.? Normal skin turgor.?? Extremities: No lower extremity edema.? Neuro: Moves all extremities spontaneously. Sensation intact bilaterally. CN II- XII intact. No focal neuro deficits. Medications Administered Discontinued Medications Generic Name Dose Route Start Last Admin Trade Name Freq PRN Reason Stop Dose Admin Acetaminophen/Butalbital/Caffeine 1 tab 06/07/23 15:59 06/07/23 16:11 Butalb/Acetamin/Caff 50/325/40 Tablet PO 06/07/23 16:00 1 tab ONCE ONE Administration Medical Decision Making Medical Decision Making [facility] Narrative: Patient is a 52-year-old female who presents emergency department for evaluation of intractable headache x4 days after head injury with associated intermittent blurred vision. She has no focal neurological deficits upon examination. Clinically have low suspicion for any ICH/SDH, patient felt strongly about having CT scan obtained due to work related injury, expressed concern for exposure to radiation, but continues to request CT scan. This was obtained and there is no evidence of acute intracranial abnormality. Provided with Fioricet had good relief advised outpatient follow-up with [facility], strict return precautions, all questions answered. Stable for discharge Differential Diagnosis Differential Diagnoses: The differential diagnosis associated with the presentation includes (Likely concussion, doubt ICH/SDH) Admission/Observation Consideration of admission/observation: Escalation of care including admission/observation considered (See narrative above) Independent Interpretation I performed an independent interpretation of an: CT Scan (No ICH no fracture) Radiology Impression Discussion of test interpretation with radiology: I have reviewed the radiologist's reading. Radiologist Impression: CT/CT head/brain wo IV con IMPRESSION: No CT evidence of acute intracranial hemorrhage or edematous territorial infarction. External Record Review External record reviewed: Outpatient record Prescription Management I considered prescription management with: Pain Medication Discharge Plan Discharge Clinical Impression: Concussion without loss of consciousness Patient Disposition: Home, Self-Care Instructions: Concussion (ED), Post Concussion Syndrome (ED) Prescriptions: No Action ciprofloxacin-dexamethasone [Ciprodex] 0.3-0.1 % drops,suspension 4 drp otic (ears) BID 7 Days Qty: 7.5 0RF fluticasone propionate [Flonase Allergy Relief] 50 mcg/actuation spray,suspension 2 spray intranasal DAILY Qty: 16 0RF Rx Instructions: administer into each nostril amoxicillin-pot clavulanate 875-125 mg tablet 1 tab PO BID 7 Days Qty: 14 0RF benzonatate 200 mg capsule 200 mg PO TID PRN (Reason: cough) Qty: 30 0RF prednisone 20 mg tablet 40 mg PO DAILY Qty: 10 0RF albuterol sulfate [ProAir HFA] 90 mcg/actuation HFA aerosol inhaler 2 puff inhalation Q6H PRN fluticasone propionate [Flovent HFA] 110 mcg/actuation HFA aerosol inhaler 2 puff inhalation BID triamcinolone acetonide [Nasacort] 55 mcg aerosol,spray 1 spray intranasal DAILY Rx Instructions: administer into each nostril Referrals: [facility] [Provider Group] Kim Chaney PA [Primary Care Provider] -
[2023-06-07] MEDS: Butalb/Acetamin/Caff 50/325/40 TABLET 1 TAB PO (16:11)
== END 2023-06-07 17:08 | disposition home or self-care (01) ==
PROVIDERS: Emergency Provider Emergency Medicine; PCP Physician Assistant
DX: S06.0X0A Concussion without loss of consciousness, initial encounter (principal); R51.9 Headache, unspecified; Y29.XXXA Contact with blunt object, undetermined intent, initial encounter; Y93.9 Activity, unspecified; Y92.89 Other specified places as the place of occurrence of the external cause; Y99.0 Civilian activity done for income or pay
CPT/HCPCS: 70450; 99283; 99284

== ENCOUNTER → 2023-06-10 14:09 | Outpatient (BNVA) | payer OTHER, SELFPAY | PROVIDERS: PCP Physician Assistant; Visit Provider Physician Assistant | DX: Z13.89 Encounter for screening for other disorder (principal) | CPT/HCPCS: 99203 ==

== ENCOUNTER → 2023-06-15 14:25 | Outpatient (BNVA) | payer OTHER, SELFPAY | PROVIDERS: PCP Physician Assistant; Visit Provider Physician Assistant Medical | DX: Z13.89 Encounter for screening for other disorder (principal) | CPT/HCPCS: 99213 ==

== ENCOUNTER 2023-07-10 15:04 | Emergency (ER) | payer OTHER, SELFPAY ==
--- NOTE | ~2023-07-10 | XR_ITS ---
EXAMINATION: XR CHEST CLINICAL INFORMATION: Shortness of breath. Cough. COMPARISON: Abdominal ultrasound July 2022 TECHNIQUE: 2 views of the chest were obtained. FINDINGS: There is a right-sided aortic arch and cardiac apex. The stomach bubble is on the right. Findings are suggestive of situs inversus. The lungs are clear. No pleural effusion or pneumothorax. Bony structures are unremarkable. XR/XR chest 2V IMPRESSION: Situs inversus otherwise unremarkable examination.
[2023-07-10 15:22] VITALS: BP 122/78; PULSE 86; RESP 22; TEMP 36.6; O2SAT 94; BMI 19.4
--- NOTE | 2023-07-10 15:23 | ED_ITS ---
HPI - URI/Sore Throat General Chief Complaint: Upper Respiratory Symptoms Stated Complaint: Asthma Time Seen by Provider: 07/10/23 15:31 Source: patient and RN notes reviewed Mode of arrival: ambulatory Limitations: no limitations History of Present Illness HPI Narrative: 52 year old female with pmhx significant for asthma, allergic rhinitis, GERD, anxiety, SLE presents to the ED today for evaluation of shortness of breath, progressively worsening over the last week. She endorses associated dry cough. No sputum production. Admits that her symptoms are worse at night. She has been using her albuterol inhaler at home without much relief. She does not use a spacer with this. She last used her inhaler last night. Also endorses tactile fevers at night. No documented temperature. Denies known sick contacts. Denies inhaling any chemicals. Denies sore throat, ear pain, eye pain, chest pain, nausea, vomiting, diarrhea. Denies recent travel or long car rides. Related Data Home Medications Medication Instructions Recorded Confirmed albuterol sulfate 90 mcg/actuation 2 puff inhalation Q6H PRN 03/13/22 03/13/22 aerosol inhaler (ProAir HFA) fluticasone propionate 110 2 puff inhalation BID 03/13/22 03/13/22 mcg/actuation HFA aerosol inhaler (Flovent HFA) triamcinolone acetonide 55 mcg 1 spray intranasal DAILY 03/13/22 03/13/22 nasal spray aerosol (Nasacort) Previous Rx's Medication Instructions Recorded amoxicillin 875 mg-potassium 1 tab PO BID 7 days #14 tabs 06/03/22 clavulanate 125 mg tablet ciprofloxacin 0.3 %-dexamethasone 4 drp otic (ears) BID 7 days #7.5 06/03/22 0.1 % ear drops,suspension mL (Ciprodex) fluticasone propionate 50 2 spray intranasal DAILY #16 grams 06/03/22 mcg/actuation nasal spray,suspension (Flonase Allergy Relief) benzonatate 200 mg capsule 200 mg PO TID PRN cough #30 caps 08/07/22 prednisone 20 mg tablet 40 mg (2 x 20 mg) PO DAILY #10 tabs 08/07/22 naproxen 500 mg tablet 500 mg PO BID PRN pain #30 tabs 06/10/23 benzonatate 100 mg capsule 100 mg PO BID PRN cough #20 caps 07/10/23 prednisone 20 mg tablet 40 mg (2 x 20 mg) PO DAILY 5 days 07/10/23 #10 tabs Allergies Allergy/AdvReac Type Severity Reaction Status Date / Time No Known Allergies Allergy Verified 07/10/23 15:25 Review of Systems Review of Systems: Constitutional: No fever, chills, fatigue, night sweats, weight changes ENT/Mouth: No ear pain, hearing loss, nasal congestion, sinus pain, rhinorrhea, sore throat Eyes: No eye pain, swelling, redness, vision changes, discharge Cardio: No chest pain, palpitations, GOODE, orthopnea, peripheral edema Pulm: No sputum, wheezing, dyspnea, hemoptysis, +cough, +sob GI: No nausea, vomiting, hematemesis, abdominal pain, diarrhea, constipation, hematochezia, melena : No irregular bleeding, dysuria, frequency, urgency, hesitancy, hematuria, flank pain, urinary flow changes, urinary incontinence or retention MSK: No back pain, neck pain, joint pain, myalgias Skin: No lesions, rashes Neuro: No weakness, numbness, paresthesias, LOC, dizziness, headache Psych: No anxiety/panic, depression, SI/HI, AH/VH All other systems reviewed and are negative. [facility] Past Medical History Attestation statement: The following information was validated with the patient. 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 Vitamin D deficiency GERD (gastroesophageal reflux disease) H/O Russel thyroiditis SLE (systemic lupus erythematosus) Anxiety Organic depressive disorder Menorrhagia Pleural effusion Consolidation lung Abnormal chest CT Allergic rhinitis Asthma COVID Surgical History H/O tubal ligation Presence of silicone breast implant History of esophagogastroduodenoscopy (EGD) Family History Family History Mother Asthma CAD (coronary artery disease) Myocardial infarct Hypertension Hypercholesteremia Sister Arthritis Sister Diabetes Social History Social History Advance Directives: No Advance Directives Information Provided: Yes Physical Exam Vital Signs: Vital Signs: Last Vital Signs Temp 98.3 F 07/10/23 16:31 Pulse 96 07/10/23 16:31 Resp 24 H 07/10/23 16:31 BP 126/65 07/10/23 16:31 Pulse Ox 99 07/10/23 16:31 O2 Del Method Room Air 07/10/23 16:31 BMI result Body Mass Index 19.4 Patient tachypneic, vitals otherwise WNL. Const: General: cooperative, healthy appearing, comfortable and no acute distress Orientation/consciousness: patient oriented x3 Limitations: no limitations HEENT: Other: Posterior oropharynx without erythema or edema. No tonsillar exudates. No peritonsillar masses. Uvula midline. Controlling secretions and speaking complete sentences. Airway patent. Head: Yes normal to inspection, Yes No palpable skull fracture present, Yes normocephalic and Yes atraumatic Ears: hearing grossly normal bilaterally, external ears normal, TM's normal bilaterally, EAC's normal, mastoids normal and no periauricular adenopathy Eyes: General: appearance normal, both eyes and all related structures Conjunctivae: conjunctivae normal Sclerae: sclerae normal Pupils: Equal, round and reactive pupils present EOM: EOMs intact bilaterally Neck: Neck: Yes normal visual inspection, Yes full ROM, Yes no lymphadenopathy and Yes no JVD Chest: Chest palpation & inspection: normal inspection of the chest and normal palpation of entire chest wall Resp: Other: + slight inspiratory wheezes noted to ri ght lung. Left lung clear to auscultation. Effort & Inspection: normal respiratory effort, Actively coughing, no respiratory distress, no stridor, no tripod positioning and no use of accessory muscles Auscultation: no crackles and no rhonchi Cardio: Jugular venous distension: no JVD Rate: regular rate Rhythm: regular rhythm Skin: General skin exam: no rashes or lesions noted Neuro: General: patient oriented x3 and gait normal Cranial nerves: Yes Equal, round and reactive pupils present Extrem: General: Yes normal to inspection, Yes capillary refill normal and Yes no calf tenderness Course Course Course Narrative: This is an RME: Additional HPI, ROS, PE not included below will be deferred to primary provider. Patient is a 52-year-old female who presents to the emergency department, Reports shortness of breath, progressively worsening over the past week with associated cough. Symptoms are worse at night. She has been using albuterol inhaler without much improvement. Reports tactile fevers. Plan: Viral panel, CXR Reevaluation(s) Reevaluation #1: 1630-- patient has tested negative for COVID, flu, RSV. Chest x-ray shows situs inversus, no focal consolidations or infiltrates to suggest pneumonia. No signs of pleural effusion. > on re-evaluation, patient states her breathing has significantly improved with breathing treatment and Decadron. lungs are now CTA b/l. no increased effort of breathing. Informed her of all workup results. I believe she had an asthma attack. Respiratory therapist educated patient on albuterol use along with spacer. Will send prednisone to pharmacy. Patient has remained stable throughout ED visit today. She is currently slightly tachycardic to 96 bpm, likely secondary to breathing treatment. Discussed worrisome signs and symptoms and when to return to the ED. All questions answered at this time. Patient is agreeable with disposition and stable for discharge. Medications Administered Discontinued Medications Generic Name Dose Route Start Last Admin Trade Name Freq PRN Reason Stop Dose Admin Albuterol Sulfate 2 puff 07/10/23 16:01 07/10/23 16:06 Albuterol Sulfate 90 Mcg 8 Gm Inhaler INHALE 07/10/23 16:02 2 puff ONCE ONE Administration Dexamethasone Sodium Phosphate 10 mg 07/10/23 15:53 07/10/23 16:10 Dexamethasone Sod Phosphate 10 Mg/Ml Vial IVPUSH 07/10/23 15:54 10 mg ONCE ONE Administration Medical Decision Making Medical Decision Making MDM Narrative: 52 year old female with pmhx significant for asthma, allergic rhinitis, GERD, anxiety, SLE presents to the ED today for evaluation of shortness of breath, progressively worsening over the last week. Patient slightly tachypneic to 22. She is afebrile. Vitals otherwise WNL. She is actively coughing on exam however she is not in any acute distress. Nontoxic appearing. Airways patent. She is controlling secretions and speaking in full sentences. Lungs with slight inspiratory wheezes to the right. Left lung clear to auscultation. No increased effort of breathing. No signs of respiratory distress. Posterior oropharynx without erythema or edema. No tonsillar exudates. No peritonsillar masses. Uvula midline. No rashes. Differential diagnosis includes viral syndrome, pneumonia, asthma exacerbation, bronchitis. Lower suspicion for pleural effusion, PE, aspiration pneumonia, acute respiratory distress syndrome. Plan for viral swabs, CXR, RT breathing treatment and re-evaluation. Differential Diagnosis Differential Diagnoses: The differential diagnosis associated with the presentation includes As above Admission/Observation Not indicated Lab Data MDM Lab Attestation statement: I reviewed the patient's lab results. as above. Labs: Lab Results 07/10/23 Range/Units 15:31 Influenza Type A (PCR) NEGATIVE (Negative) Influenza Type B (PCR) NEGATIVE (Negative) RSV RNA Qual (PCR) NEGATIVE (Negative) SARS-CoV-2 RNA (RT-PCR) NEGATIVE (Negative) Independent Interpretation I performed an independent interpretation of an: Plain X-Ray Interpretation: I personally reviewed chest x-ray and agree with radiologist's interpretation Radiology Impression Discussion of test interpretation with radiology: I have reviewed the radiologist's reading. Radiologist Impression: EXAMINATION: XR CHEST CLINICAL INFORMATION: Shortness of breath. Cough. COMPARISON: Abdominal ultrasound July 2022 TECHNIQUE: 2 views of the chest were obtained. FINDINGS: There is a right-sided aortic arch and cardiac apex. The stomach bubble is on the right. Findings are suggestive of situs inversus. The lungs are clear. No pleural effusion or pneumothorax. Bony structures are unremarkable. XR/XR chest 2V IMPRESSION: Situs inversus otherwise unremarkable examination. External Record Review External record reviewed: Inpatient record Prescription Management I considered prescription management with: Other (Prednisone, Tessalon Perles) Chronic Conditions Patient?s care impacted by: Other (asthma) Social Determinants Patient?s care significantly limited by Social Determinants of Health including: Other Social Determinant of Health Critical Care Time Critical Care Time Total Critical Care Time: 45 Attestation: Critical care time in the amount of 45 minutes has been provided to the patient in terms of direct patient care, frequent reevaluation, review and interpretation of medical data and results, and management of potentially life- threatening conditions. This is all outside of any medical procedures. Discharge Plan Discharge Clinical Impression: Asthma exacerbation Patient Disposition: Home, Self-Care Instructions: Asthma (ED), How to Use a Metered-Dose Inhaler and a Spacer (ED) Additional Instructions: You tested negative for COVID, flu, RSV. Your chest x-ray does not demonstrate signs of pneumonia or fluid. Your shortness of breath improved with breathing treatment and steroids today. Prednisone as a steroid that has been sent to your pharmacy. Take this as directed over the next 5 days. You were already given a steroid in the ED today so began this prescription tomorrow. Carlos Almaraz have been sent to your pharmacy to help with cough. Follow-up with PCP as needed. Return with new or worsening symptoms. In the case of an emergency call 911. Prescriptions: New prednisone 20 mg tablet 40 mg PO DAILY 5 Days Qty: 10 0RF benzonatate 100 mg capsule 100 mg PO BID PRN (Reason: cough) Qty: 20 0RF No Action ciprofloxacin-dexamethasone [Ciprodex] 0.3-0.1 % drops,suspension 4 drp otic (ears) BID 7 Days Qty: 7.5 0RF fluticasone propionate [Flonase Allergy Relief] 50 mcg/actuation spray,suspension 2 spray intranasal DAILY Qty: 16 0RF Rx Instructions: administer into each nostril amoxicillin-pot clavulanate 875-125 mg tablet 1 tab PO BID 7 Days Qty: 14 0RF benzonatate 200 mg capsule 200 mg PO TID PRN (Reason: cough) Qty: 30 0RF prednisone 20 mg tablet 40 mg PO DAILY Qty: 10 0RF albuterol sulfate [ProAir HFA] 90 mcg/actuation HFA aerosol inhaler 2 puff inhalation Q6H PRN fluticasone propionate [Flovent HFA] 110 mcg/actuation HFA aerosol inhaler 2 puff inhalation BID triamcinolone acetonide [Nasacort] 55 mcg aerosol,spray 1 spray intranasal DAILY Rx Instructions: administer into each nostril naproxen 500 mg tablet 500 mg PO BID PRN (Reason: pain) Qty: 30 0RF Referrals: Kim Chaney PA [Primary Care Provider] - Stand Alone Forms: Work/School Release
[2023-07-10] MEDS: Albuterol Sulfate 90 MCG 8 GM INHALER 2 PUFF INHALE (16:06)
[2023-07-10 16:07] VITALS: PULSE 70; RESP 18; O2SAT 98
[2023-07-10] MEDS: dexAMETHasone sod phosphate 10 MG/ML VIAL IVPUSH (16:10)
[2023-07-10 16:18] LABS: Influenza A PCR NEGATIVE (Negative); Influenza B PCR NEGATIVE (Negative); Resp Syncy Virus RNA Qual PCR NEGATIVE (Negative); SARS COV2 PCR INHOUSE NEGATIVE (Negative)
[2023-07-10 16:31] VITALS: BP 126/65; PULSE 96; RESP 24; TEMP 36.8; O2SAT 99
[2023-07-10 16:59] VITALS: BP 126/65; PULSE 96; RESP 24; TEMP 36.8; O2SAT 99
== END 2023-07-10 17:00 | disposition home or self-care (01) ==
PROVIDERS: Nurse Practitioner Family; Emergency Provider Emergency Medicine Emergency Medical Services; PCP Physician Assistant
DX: J45.901 Unspecified asthma with (acute) exacerbation (principal); R06.02 Shortness of breath; R05.9 Cough, unspecified; Z11.52 Encounter for screening for COVID-19; Z20.822 Contact with and (suspected) exposure to COVID-19; Z79.899 Other long term (current) drug therapy
CPT/HCPCS: 0241U; 71046; 94640; 94664; 99283; 99284; J1100

== ENCOUNTER 2023-07-18 14:01 | Emergency (ER) | payer OTHER, SELFPAY ==
[2023-07-18 14:30] VITALS: BP 114/73; PULSE 116; RESP 20; TEMP 36.9; O2SAT 98; BMI 18.3
[2023-07-18 15:12] LABS: COVID-19 Test Negative (Negative); IDNOW Serial# 08D9AD1C; IDNOW Serial# 152EDE1D; Influenza A Negative (Negative); Influenza B2 Negative (Negative)
--- NOTE | 2023-07-18 15:14 | ED_ITS ---
HPI - URI/Sore Throat General Chief Complaint: Upper Respiratory Symptoms Stated Complaint: Ear ache and throat soreness Time Seen by Provider: 07/18/23 16:32 Source: patient Mode of arrival: ambulatory Limitations: no limitations History of Present Illness HPI Narrative: 52-year-old female presents to the ER for evaluation of 1 week of not feeling well. She states she was seen here recently for asthma exacerbation. After that she went home and she thinks her daughter got her sick with a virus. She reports sore throat with painful swallowing. She also reports bilateral ear pain and a headache. She has a stuffy and runny nose. She denies a cough or chest pain. No shortness of breath, nausea, vomiting, abdominal pain. No dizziness or lightheadedness. MD elicited complaint: sore throat and nasal congestion Pertinent past history: asthma Onset (ago): day(s) Consistency: progressively worsening Severity: moderate Description of mucous: clear Able to tolerate fluids by mouth: Yes Exacerbating factors: swallowing Relieving factors: nothing Context: sick contacts Associated symptoms: headache, nasal congestion and sore throat Treatments prior to arrival: none Related Data Home Medications ?Medication ?Instructions ?Recorded ?Confirmed albuterol sulfate 90 mcg/actuation 2 puff inhalation Q6H PRN 03/13/22 03/13/22 aerosol inhaler (ProAir HFA) fluticasone propionate 110 2 puff inhalation BID 03/13/22 03/13/22 mcg/actuation HFA aerosol inhaler (Flovent HFA) triamcinolone acetonide 55 mcg 1 spray intranasal DAILY 03/13/22 03/13/22 nasal spray aerosol (Nasacort) Previous Rx's ?Medication ?Instructions ?Recorded amoxicillin 875 mg-potassium 1 tab PO BID 7 days #14 tabs 06/03/22 clavulanate 125 mg tablet ciprofloxacin 0.3 %-dexamethasone 4 drp otic (ears) BID 7 days #7.5 06/03/22 0.1 % ear drops,suspension mL (Ciprodex) fluticasone propionate 50 2 spray intranasal DAILY #16 grams 06/03/22 mcg/actuation nasal spray,suspension (Flonase Allergy Relief) benzonatate 200 mg capsule 200 mg PO TID PRN cough #30 caps 08/07/22 prednisone 20 mg tablet 40 mg (2 x 20 mg) PO DAILY #10 tabs 08/07/22 naproxen 500 mg tablet 500 mg PO BID PRN pain #30 tabs 06/10/23 benzonatate 100 mg capsule 100 mg PO BID PRN cough #20 caps 07/10/23 prednisone 20 mg tablet 40 mg (2 x 20 mg) PO DAILY 5 days 07/10/23 #10 tabs Allergies Allergy/AdvReac Type Severity Reaction Status Date / Time No Known Allergies Allergy Verified 07/18/23 14:32 Review of Systems Review of Systems: Yes all other systems are reviewed and are negative [facility] Past Medical History Medical History 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 Vitamin D deficiency GERD (gastroesophageal reflux disease) H/O Russel thyroiditis SLE (systemic lupus erythematosus) Anxiety Organic depressive disorder Menorrhagia Pleural effusion Consolidation lung Abnormal chest CT Allergic rhinitis Asthma COVID Surgical History H/O tubal ligation Presence of silicone breast implant History of esophagogastroduodenoscopy (EGD) Family History Family History Mother Asthma CAD (coronary artery disease) Myocardial infarct Hypertension Hypercholesteremia Sister Arthritis Sister Diabetes Social History Social History Advance Directives: No Advance Directives Information Provided: Yes Physical Exam Vital Signs: Vital Signs: Last Vital Signs Temp 98 F 07/18/23 17:32 Pulse 80 07/18/23 17:32 Resp 18 07/18/23 17:32 BP 120/68 07/18/23 17:32 Pulse Ox 98 07/18/23 17:32 O2 Del Method Room Air 07/18/23 17:32 BMI result Body Mass Index 18.3 Appearance: Alert. Oriented X3. No acute distress. Head: normocephalic, atraumatic. Eyes: Pupils equal, round and reactive to light. ENT: Pharynx normal. No tonsillar swelling or exudate. Neck: Normal inspection. Neck supple. CVS: Normal heart rate and rhythm. Pulses normal. Respiratory: No respiratory distress. Breath sounds normal. Abdomen: Soft and nontender. +BS x4 Skin: Skin warm and dry. Normal skin color. Normal skin turgor. No rashes. Extremities: No lower extremity edema. No joint swelling. Neuro/psych: Oriented X 3. No motor deficit. No sensory deficit. CN II-XII intact. Normal speech and cognition. Course Course Course Narrative: This is a Rapid Medical Examination (RME) in triage, full HPI, ROS, assessment and plan per primary provider in the Main ED. 52 yo female with history of asthma presents to the ER for evaluation of sore throat, earaches, headaches and sore throat for the last few days Plan: strep and viral studies Medications Administered Discontinued Medications Generic Name Dose Route Start Last Admin Trade Name Freq PRN Reason Stop Dose Admin Ibuprofen 600 mg 07/18/23 16:35 07/18/23 17:28 Ibuprofen 600 Mg Tablet PO 07/18/23 16:36 600 mg ONCE ONE Administration Lidocaine HCl 15 ml 07/18/23 16:35 07/18/23 17:28 Lidocaine Hcl Viscous 2 % 15 Ml Solution MUCOUS MEM 07/18/23 16:36 15 ml ONCE ONE Administration Medical Decision Making Medical Decision Making [facility] Narrative: 52 yo female with history of asthma presenting with URI symptoms. Exam reveals no evidence of acute bacterial infection. Doubt sinusitis given acute presentation. Most likely viral URI. Viral studies today are negative. Strep unlikely given normal exam. VS are stable. She appears well, nontoxic. She was given meds for sore throat and headache, feeling improved. Discussed dx and tx along w/ return precautions. stable for d/c home w/ supportive care Differential Diagnosis Differential Diagnoses: The differential diagnosis associated with the presentation includes acute viral URI, otits media, strep, covid, flu, rsv, other viral syndrome, bronchitis, pneumonia, no evidence of peritonsillar abcsess or retropharyngeal abscess Admission/Observation Consideration of admission/observation: Escalation of care including admission/observation considered however her symptoms and exam were reassuring against need for inpatient care Lab Data [facility] Lab Attestation statement: I reviewed the patient's lab results. Labs: Lab Results 07/18/23 Range/Units 14:49 COVID-19 (HIGINIO) Negative (Negative) COVID-19 Clin Com See Note Influenza Type A (WALTER) Negative (Negative) Influenza Type B (WALTER) Negative (Negative) Influenza A & B Note See Note External Record Review External record reviewed: Outpatient record and Prior outpatient labs Prescription Management I considered prescription management with: Pain Medication and Antibiotic Chronic Conditions Patient?s care impacted by: Other (asthma) Discharge Plan Discharge Clinical Impression: Upper respiratory infection Patient Disposition: Home, Self-Care Instructions: Upper Respiratory Infection (DC) Additional Instructions: You tested negative for strep throat. You also tested negative for influenza and COVID. Your symptoms most likely viral in etiology. Treatment is rest and supportive care. Take [id number] cold and flu medications as needed for your symptoms. Rest and drink plenty of fluids. Gargle with warm salt water 3 times per day. Recommend [id number] Chloraseptic spray or Cepacol lozenges for sore throat Follow up with your doctor as needed If you develop new or worsening symptoms call 911 or come back to the ER for further evaluation. Prescriptions: No Action ciprofloxacin-dexamethasone [Ciprodex] 0.3-0.1 % drops,suspension 4 drp otic (ears) BID 7 Days Qty: 7.5 0RF fluticasone propionate [Flonase Allergy Relief] 50 mcg/actuation spray,suspension 2 spray intranasal DAILY Qty: 16 0RF Rx Instructions: administer into each nostril amoxicillin-pot clavulanate 875-125 mg tablet 1 tab PO BID 7 Days Qty: 14 0RF prednisone 20 mg tablet 40 mg PO DAILY 5 Days Qty: 10 0RF benzonatate 100 mg capsule 100 mg PO BID PRN (Reason: cough) Qty: 20 0RF benzonatate 200 mg capsule 200 mg PO TID PRN (Reason: cough) Qty: 30 0RF prednisone 20 mg tablet 40 mg PO DAILY Qty: 10 0RF albuterol sulfate [ProAir HFA] 90 mcg/actuation HFA aerosol inhaler 2 puff inhalation Q6H PRN fluticasone propionate [Flovent HFA] 110 mcg/actuation HFA aerosol inhaler 2 puff inhalation BID triamcinolone acetonide [Nasacort] 55 mcg aerosol,spray 1 spray intranasal DAILY Rx Instructions: administer into each nostril naproxen 500 mg tablet 500 mg PO BID PRN (Reason: pain) Qty: 30 0RF Stand Alone Forms: Work/School Release Interventions: ED Discharge Assessment Last Done: 07/18/23 17:32 Discharge Date/Time: 07/18/23 17:32 Print Language: Cymraes
[2023-07-18 17:22] VITALS: BP 111/75; PULSE 89; RESP 20; TEMP 36.7; O2SAT 98
[2023-07-18] MEDS: Lidocaine HCl Viscous 2 % 15 ML SOLUTION MUCOUS MEM (17:28)
[2023-07-18] MEDS: Ibuprofen 600 MG TABLET PO (17:28)
[2023-07-18 17:30] VITALS: O2SAT 98
[2023-07-18 17:32] VITALS: BP 120/68; PULSE 80; RESP 18; TEMP 36.6; O2SAT 98
== END 2023-07-18 17:32 | disposition home or self-care (01) ==
PROVIDERS: Physician Assistant; Emergency Provider Emergency Medicine Emergency Medical Services
DX: J06.9 Acute upper respiratory infection, unspecified (principal); J02.9 Acute pharyngitis, unspecified; R51.9 Headache, unspecified; R09.81 Nasal congestion; Z11.52 Encounter for screening for COVID-19
CPT/HCPCS: 87502; 87635; 99283; 99284

== ENCOUNTER 2023-08-29 16:13 | Emergency (ER) | payer OTHER, SELFPAY ==
--- NOTE | ~2023-08-29 | XR_ITS ---
EXAMINATION: XR RIBS, RIGHT CLINICAL INFORMATION: Pain without trauma COMPARISON: 07/10/2023 TECHNIQUE: Single view chest and 3 views of the right ribs were obtained. FINDINGS: There is situs inversus. Lungs are clear. No consolidation, pneumothorax, or pleural effusion. The cardiomediastinal silhouette and pulmonary vasculature are normal. Osseous structures are unremarkable. Ribs are intact. No fractures are identified. XR/XR ribs RT min 3V w CXR1V IMPRESSION: No acute intrathoracic disease. No rib fractures. Incidentally noted situs inversus.
[2023-08-29 16:26] VITALS: BP 105/68; PULSE 85; RESP 20; TEMP 37.2; O2SAT 98; BMI 22.7
--- NOTE | 2023-08-29 16:26 | ED.ABDPAIN ---
HPI - Abdominal Pain General Chief Complaint: General Medical Stated Complaint: Rib pain Time Seen by Provider: 08/29/23 18:57 Source: patient Mode of arrival: ambulatory Limitations: no limitations History of Present Illness ED Provider: Carolyn Mayo HPI narrative: 52 yo female with history of lupus, arthritis, asthma, situs invertus here with complaints of right sided rib pain/worsened with movement/coughing, deep breathing x 1 week. No known injury or trauma. 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 No SOB, chest pain, productive cough, fevers, chills, leg swelling or leg pain, abdominal pain, vomiting, diarrhea or urinary complaints. No recent travel, recent surgery Is on provera No family history of PE/DVT Related Data Home Medications ?Medication ?Instructions ?Recorded ?Confirmed albuterol sulfate 90 mcg/actuation 2 puff inhalation Q6H PRN 03/13/22 03/13/22 aerosol inhaler (ProAir HFA) fluticasone propionate 110 2 puff inhalation BID 03/13/22 03/13/22 mcg/actuation HFA aerosol inhaler (Flovent HFA) triamcinolone acetonide 55 mcg 1 spray intranasal DAILY 03/13/22 03/13/22 nasal spray aerosol (Nasacort) Previous Rx's ?Medication ?Instructions ?Recorded amoxicillin 875 mg-potassium 1 tab PO BID 7 days #14 tabs 06/03/22 clavulanate 125 mg tablet ciprofloxacin 0.3 %-dexamethasone 4 drp otic (ears) BID 7 days #7.5 06/03/22 0.1 % ear drops,suspension mL (Ciprodex) fluticasone propionate 50 2 spray intranasal DAILY #16 grams 06/03/22 mcg/actuation nasal spray,suspension (Flonase Allergy Relief) benzonatate 200 mg capsule 200 mg PO TID PRN cough #30 caps 08/07/22 prednisone 20 mg tablet 40 mg (2 x 20 mg) PO DAILY #10 tabs 08/07/22 naproxen 500 mg tablet 500 mg PO BID PRN pain #30 tabs 06/10/23 benzonatate 100 mg capsule 100 mg PO BID PRN cough #20 caps 07/10/23 prednisone 20 mg tablet 40 mg (2 x 20 mg) PO DAILY 5 days 07/10/23 #10 tabs lidocaine 5 % topical patch 1 patch topical DAILY #15 ea 08/29/23 (Lidoderm) naproxen 500 mg tablet 500 mg PO BID PRN pain #30 tabs 08/29/23 Allergies Allergy/AdvReac Type Severity Reaction Status Date / Time No Known Allergies Allergy Verified 08/29/23 16:27 Review of Systems Review of Systems Yes all other systems are reviewed and are negative Constitutional: Reports no additional constitutional complaints, Denies body ache(s), Denies chills, Denies fever(s), Denies headache(s) and Denies weakness Eyes: Reports no additional eye complaints and Denies change in vision Reports system reviewed and no additional complaints, except as documented, Denies dizziness, Denies headache(s), Denies nasal congestion, Denies nasal discharge and Denies neck pain Cardiovascular: Reports no additional cardiovascular complaints, Reports chest pain, Denies leg edema and Denies dyspnea Respiratory: Reports no additional respiratory complaints, Denies cough and Denies dyspnea Gastrointestinal: Reports no additional gastrointestinal complaints, Denies abdominal pain, Denies diarrhea, Denies nausea and Denies vomiting Genitourinary: Reports no additional female genitourinary complaints and Denies urinary incontinence Musculoskeletal: Reports no additional musculoskeletal complaints, Denies back pain, Denies arthralgias, Denies joint swelling, Denies neck pain, Denies numbness and Denies tingling Skin/Breast: Reports system reviewed and no additional complaints, except as docu and Denies rash Reports system reviewed and no additional complaints, except as documented, Denies Abnormal speech present, Denies dizziness, Denies headache(s), Denies numbness, Denies tingling and Denies weakness [facility] Past Medical History Attestation statement: The following information was validated with the patient. 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 Vitamin D deficiency GERD (gastroesophageal reflux disease) H/O Russel thyroiditis SLE (systemic lupus erythematosus) Anxiety Organic depressive disorder Menorrhagia Pleural effusion Consolidation lung Abnormal chest CT Allergic rhinitis Asthma COVID Surgical History H/O tubal ligation Presence of silicone breast implant History of esophagogastroduodenoscopy (EGD) Family History Family History Mother Asthma CAD (coronary artery disease) Myocardial infarct Hypertension Hypercholesteremia Sister Arthritis Sister Diabetes Social History Social History Advance Directives: No Advance Directives Information Provided: No Do you have a plan to hurt others: No Plan Physical Exam ED Vital Signs: Vital Signs - 24 hr 08/29/23 16:26 Temperature 98.9 F Pulse Rate 85 Respiratory Rate 20 Blood Pressure 105/68 Pulse Oximetry 98 Oxygen Delivery Method Room Air BMI result Body Mass Index 22.7 Const General: cooperative, healthy appearing, comfortable and no acute distress Orientation/consciousness: patient oriented x3 Limitations: no limitations HENMT Head: Yes normal to inspection Ears: hearing grossly normal bilaterally General nose exam: Normal external nose present Face and sinus: Yes normal facial exam Mouth: Normal oral and palatal mucosa present Throat: Yes posterior oropharynx normal Eyes General: appearance normal, both eyes and all related structures Pupils: Equal, round and reactive pupils present Neck Neck: Yes normal visual inspection Chest Chest palpation & inspection: normal inspection of the chest and tenderness (right mid/upper/lateral chest wall ) Resp Effort & Inspection: normal respiratory effort Auscultation: clear to auscultation bilaterally Cardio Rate: regular rate Rhythm: regular rhythm Peripheral pulses: Peripheral pulses 2+ throughout GI Inspection: Yes normal to inspection Palpation (GI): Soft to palpation and nontender Auscultation: normal bowel sounds General: Yes no CVA tenderness Back/Spine/Pelvis Back: no CVA tenderness Thoracic/Lumbar Spine: thoracic and lumbar spine normal to inspection Skin General skin exam: no rashes or lesions noted Neuro General: patient oriented x3, no focal motor deficits and normal sensation to monofilament Cranial nerves: Yes Equal, round and reactive pupils present Cognition (Neuro): normal cognition Speech: No Abnormal speech present Gait exam (Neuro): Normal gait present Motor exam (neuro): 5/5 motor strength present throughout Extrem General: Yes normal to inspection, Yes no pedal edema and Yes no calf tenderness Course Course Course Narrative: This is a rapid medical exam. Deferred additional HPI, ROS, PE to primary provider. 52 yo female with history of lupus, arthritis here with complaints of right sided rib pain/worsened with movement/coughing x 1 week. Will obtain labs, EKG, CXR VSS -Aubrey Mayo APRN Reevaluation(s) Reevaluation #1: EKG nonischemic. Chest x-ray shows no acute finding. Labs are unremarkable as well as urine sample. Likely chest wall strain versus pleurisy. Patient be discharged home with NSAID, recommendations for supportive care at home. Reviewed worrisome signs and symptoms when to return to the emergency room. Comfortable plan for discharge home. Medical Decision Making Medical Decision Making [facility] Narrative: 52 yo female with history of lupus, arthritis, asthma, situs invertus here with complaints of right sided rib pain/worsened with movement/coughing, deep breathing x 1 week. No known injury or trauma. 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 No SOB, chest pain, productive cough, fevers, chills, leg swelling or leg pain, abdominal pain, vomiting, diarrhea or urinary complaints. No recent travel, recent surgery Is on provera No family history of PE/DVT LS clear. No PE edema or swelling on exam. VSS Will obtain labs, EKG, CXR, UA Will give analgesia Differential Diagnosis Differential Diagnoses: The differential diagnosis associated with the presentation includes pleurisy, ptx, pna, chest wall strain low suspicion for acs with symptoms >1 week with nonischemic ekg, flat trop Low suspicion for PE with negative d dimer, no hypoxia/tachypnea/tachycardia/clinical findings concern for dvt low suspicion for AAA with gradual onset Admission/Observation Consideration of admission/observation: Escalation of care including admission/observation considered See discussion above Lab Data [facility] Lab Attestation statement: I reviewed the patient's lab results. 08/29/23 16:49 08/29/23 16:49 Labs: Lab Results 08/29/23 08/29/23 Range/Units 16:49 19:45 WBC 8.2 (4.8-10.8) X10*3/uL RBC 4.24 (4.20-5.50) X10*6/uL Hgb 13.4 (12.0-16.0) g/dl Hct 40.9 (37.0-47.0) % MCV 96.5 (80.0-98.0) fL MCH 31.6 (27.0-33.0) pg MCHC 32.8 (31.0-35.0) g/dl RDW 15.0 (11.0-16.0) % Plt Count 138 L D (160-400) X10*3/uL MPV 10.7 (9.4-12.3) fL Immature Gran % (Auto) 0.4 (0.0-0.4) % Neut % (Auto) 65.4 (45-73) % Lymph % (Auto) 25.3 (20-40) % [place] % (Auto) 6.6 (2-11) % Eos % (Auto) 2.1 (0-4) % Baso % (Auto) 0.2 (0-2) % Lymph # (Auto) 2.1 (1.2-4.9) X10*3/uL [place] # (Auto) 0.5 (0.1-1.2) X10*3/uL Eos # (Auto) 0.2 (0.0-0.4) X10*3/uL Baso # (Auto) 0.0 (0.0-0.2) X10*3/uL Abs Immat Gran (auto) 0.03 (0.00-0.03) X10*3/uL Absolute Neuts (auto) 5.4 (2.0-8.3) x10*3/uL Absolute Nucleated RBC 0.000 (0.0-0.012) X10*3/uL Nucleated RBC % (auto) 0.0 (0.0-0.2) /100WBC PT 14.5 H (11.1-13.3) SEC INR 1.2 H (0.9-1.1) D-Dimer High Sensitivty 215 NG/ML Sodium 143 (135-145) mmol/L Potassium 4.2 (3.3-5.1) mmol/L Chloride 109 H (96-108) mmol/L Carbon Dioxide 23 (22-29) mmol/L Anion Gap 15 (12-20) BUN 7 L (9-16) mg/dL Creatinine 0.74 (0.5-1.4) mg/dL Estim Creat Clear Calc 85.4 Estimated GFR > 60 Random Glucose 92 (60-115) mg/dL Calcium 10.2 (8.4-10.2) mg/dL Total Bilirubin 0.5 (0.0-1.0) mg/dL Direct Bilirubin 0.2 (0.0-0.5) mg/dL AST 66 H (5-31) U/L ALT 74 H (0-31) U/L Alkaline Phosphatase 101 (39-117) U/L Troponin I High Sens < 2.7 (<3.5-17.0) ng/L Total Protein 7.9 (6.5-8.0) g/dL Albumin 4.2 (3.5-5.0) g/dL Urine Color Yellow Urine Appearance Clear Urine pH 6.5 (5.0-9.0) Ur Specific [place] 1.020 (1.005-1.025) Urine Protein Negative (Neg-Trace) mg/dL Urine Glucose (UA) Negative (Negative) mg/dL Urine Ketones Negative (Negative) mg/dL Urine Blood Negative (Negative) Urine Nitrite Negative (Negative) Ur Leukocyte Esterase Negative (Negative) Independent Interpretation I performed an independent interpretation of an: EKG and Plain X-Ray Interpretation: I independetely reviewed the CXR and agree with the rad report I independetely reviewed the EKG which shows nsr, normal pr, normal qrs Radiology Impression Discussion of test interpretation with radiology: I have reviewed the radiologist's reading. Radiologist Impression: [place] [id number] XRay Report Signed Patient: Elinor Garcia MR#: [id number] : 1970 Acct:[id number] Age/Sex: 52 / F ADM Date: 08/29/23 Loc: .ED Attending Dr: Ordering Physician: Carolyn Pastor NP Date of Service: 08/29/23 Procedure(s): XR ribs RT min 3V w CXR1V Accession Number(s): [id number] cc: Physician,None ; Carolyn Pastor NP~ EXAMINATION: XR RIBS, RIGHT CLINICAL INFORMATION: Pain without trauma COMPARISON: 07/10/2023 TECHNIQUE: Single view chest and 3 views of the right ribs were obtained. FINDINGS: There is situs inversus. Lungs are clear. No consolidation, pneumothorax, or pleural effusion. The cardiomediastinal silhouette and pulmonary vasculature are normal. Osseous structures are unremarkable. Ribs are intact. No fractures are identified. XR/XR ribs RT min 3V w CXR1V IMPRESSION: No acute intrathoracic disease. No rib fractures. Incidentally noted situs inversus. Independent Historian Clinical information obtained from an independent historian. History obtained from or confirmed by: Friend Prescription Management I considered prescription management with: Pain Medication Medications Administered Discontinued Medications Generic Name Dose Route Start Last Admin Trade Name Freq PRN Reason Stop Dose Admin Ketorolac Tromethamine 15 mg 08/29/23 19:09 08/29/23 20:08 Ketorolac Tromethamine 15 Mg/Ml Vial IM 08/29/23 19:10 15 mg ONCE ONE Administration Discharge Plan Discharge Clinical Impression: Chest wall pain Patient Disposition: Home, Self-Care Instructions: Chest Wall Pain (ED) Additional Instructions: Your chest x-ray, lab work and EKG are normal Your urine shows no signs of infection Gentle stretching No heavy lifting or bending Follow-up with PCP for continued symptoms Prescriptions: New naproxen 500 mg tablet 500 mg PO BID PRN (Reason: pain) Qty: 30 0RF lidocaine [Lidoderm] 5 % adhesive patch,medicated 1 patch topical DAILY Qty: 15 0RF Rx Instructions: leave on most painful area for up to 12 hrs No Action ciprofloxacin-dexamethasone [Ciprodex] 0.3-0.1 % drops,suspension 4 drp otic (ears) BID 7 Days Qty: 7.5 0RF fluticasone propionate [Flonase Allergy Relief] 50 mcg/actuation spray,suspension 2 spray intranasal DAILY Qty: 16 0RF Rx Instructions: administer into each nostril amoxicillin-pot clavulanate 875-125 mg tablet 1 tab PO BID 7 Days Qty: 14 0RF prednisone 20 mg tablet 40 mg PO DAILY 5 Days Qty: 10 0RF benzonatate 100 mg capsule 100 mg PO BID PRN (Reason: cough) Qty: 20 0RF benzonatate 200 mg capsule 200 mg PO TID PRN (Reason: cough) Qty: 30 0RF prednisone 20 mg tablet 40 mg PO DAILY Qty: 10 0RF albuterol sulfate [ProAir HFA] 90 mcg/actuation HFA aerosol inhaler 2 puff inhalation Q6H PRN fluticasone propionate [Flovent HFA] 110 mcg/actuation HFA aerosol inhaler 2 puff inhalation BID triamcinolone acetonide [Nasacort] 55 mcg aerosol,spray 1 spray intranasal DAILY Rx Instructions: administer into each nostril naproxen 500 mg tablet 500 mg PO BID PRN (Reason: pain) Qty: 30 0RF Referrals: Physician,None [Primary Care Provider] - 1 week Stand Alone Forms: Work/School Release Print Language: Algerian
--- NOTE | 2023-08-29 16:27 | ECG_ITS ---
Test Reason : chest pain Blood Pressure : / mmHG Vent. Rate : 077 BPM Atrial Rate : 077 BPM P-R Int : 138 ms QRS Dur : 070 ms QT Int : 378 ms P-R-T Axes : 110 205 100 degrees QTc Int : 427 ms Suspect limb lead reversal, interpretation assumes no reversal Normal sinus rhythm Low voltage QRS Septal infarct (cited on or before 07-AUG-2022) Possible Lateral infarct (cited on or before 07-AUG-2022) Abnormal ECG When compared with ECG of 07-AUG-2022 20:08, Questionable change in initial forces of Lateral leads T wave inversion more evident in Anterolateral leads Referred By: Carolyn Mayo Electronically Signed By:MATT ABURTO MD
[2023-08-29 16:54] LABS: MANUAL DIFF FLAG NO
[2023-08-29 17:03] LABS: INTERNATIONAL NORM RATIO 1.2 (0.9-1.1); Prothrombin Time 14.5 SEC (11.1-13.3)
[2023-08-29 17:16] LABS: Alanine Aminotransferase 74 U/L (0-31); Albumin Level 4.2 g/dL (3.5-5.0); Alkaline Phosphatase 101 U/L (39-117); Anion Gap 15 (12-20); Aspartate Amino Transferase 66 U/L (5-31); Bilirubin Direct 0.2 mg/dL (0.0-0.5); Bilirubin Total 0.5 mg/dL (0.0-1.0); Blood Urea Nitrogen 7 mg/dL (9-16); Calcium 10.2 mg/dL (8.4-10.2); Carbon Dioxide 23 mmol/L (22-29); Chloride 109 mmol/L (96-108); Creatinine Clr Calc Pharmacy 85.4; Estimated Glomerular Filt Rate > 60; Glucose Random 92 mg/dL (60-115); Potassium 4.2 mmol/L (3.3-5.1); Sodium 143 mmol/L (135-145); Total Protein 7.9 g/dL (6.5-8.0)
[2023-08-29 17:19] LABS: Basophils Percent Auto 0.2 % (0-2); Eosinophils Absolute Auto 0.2 X10*3/uL (0.0-0.4); Eosinophils Percent Auto 2.1 % (0-4); Hematocrit 40.9 % (37.0-47.0); Hemoglobin 13.4 g/dl (12.0-16.0); Imm Gran Abs Auto 0.03 X10*3/uL (0.00-0.03); Imm Gran Pct Auto 0.4 % (0.0-0.4); Lymphocytes Absolute Auto 2.1 X10*3/uL (1.2-4.9); Lymphocytes Percent Auto 25.3 % (20-40); Mean Corpuscular HGB Conc 32.8 g/dl (31.0-35.0); Mean Corpuscular Hemoglobin 31.6 pg (27.0-33.0); Mean Corpuscular Volume 96.5 fL (80.0-98.0); Mean Platelet Volume 10.7 fL (9.4-12.3); Monocytes Absolute Auto 0.5 X10*3/uL (0.1-1.2); Monocytes Percent Auto 6.6 % (2-11); Neutrophils Absolute Auto 5.4 x10*3/uL (2.0-8.3); Neutrophils Percent Auto 65.4 % (45-73); Platelet Count 138 X10*3/uL (160-400); Red Blood Count 4.24 X10*6/uL (4.20-5.50); White Blood Count 8.2 X10*3/uL (4.8-10.8)
[2023-08-29 17:27] LABS: Troponin-I High Sensitivity < 2.7 ng/L (<3.5-17.0)
[2023-08-29 19:25] LABS: D Dimer High Sensitivity 215 NG/ML
[2023-08-29 19:53] LABS: Appearance Urine Clear; Color Urine Yellow; Glucose Urine UA Negative (Negative); Leukocyte Esterase Urine Negative (Negative); Nitrite Urine Negative (Negative); PH 6.5 (5.0-9.0); Urine Blood Negative (Negative); Urine Ketones Negative (Negative); Urine Protein Negative (Neg-Trace)
[2023-08-29] MEDS: Ketorolac Tromethamine 15 MG/ML VIAL IM (20:08)
[2023-08-29 20:23] VITALS: BP 134/79; PULSE 82; RESP 18; TEMP 36.4; O2SAT 97
== END 2023-08-29 20:23 | disposition home or self-care (01) ==
PROVIDERS: Nurse Practitioner Family; Emergency Provider Internal Medicine
DX: R07.89 Other chest pain (principal); R07.81 Pleurodynia; M32.9 Systemic lupus erythematosus, unspecified; J45.909 Unspecified asthma, uncomplicated; K21.9 Gastro-esophageal reflux disease without esophagitis
CPT/HCPCS: 36415; 71101; 80048; 80076; 81003; 84484; 85025; 85379; 85610; 93005; 96372; 99284; J1885

== ENCOUNTER → 2023-08-29 16:27 | Outpatient (BNV) | payer OTHER, SELFPAY | PROVIDERS: Emergency Provider Internal Medicine; Visit Provider Internal Medicine Cardiovascular Disease | DX: R94.31 Abnormal electrocardiogram [ECG] [EKG] (principal) | CPT/HCPCS: 93010 ==

== ENCOUNTER 2024-05-02 16:42 | Emergency (ER) | payer SELFPAY ==
--- NOTE | ~2024-05-02 | XR_ITS ---
CLINICAL HISTORY: pain 4 view right hand Comparison: None Findings: No acute fracture involving the hand. There is a mildly displaced mildly comminuted intra-articular distal radial fracture extending to the radiocarpal joint. Nondisplaced fracture at the tip of the ulnar styloid process. No dislocation. No significant arthritic change. Soft tissue swelling. IMPRESSION: 1. Acute mildly displaced mildly-comminuted intra-articular distal radial fracture and nondisplaced fracture of the ulnar styloid process. No dislocation. This document has been electronically signed by: Destiny Llanos MD on 05/02/2024 18:18:20
[2024-05-02 17:28] VITALS: BP 130/88; PULSE 88; RESP 16; TEMP 36.6; O2SAT 100; BMI 19.6
--- NOTE | 2024-05-02 17:32 | ED_ITS ---
HPI - Extremity Problem General Chief complaint: Extremity Injury, Upper Stated complaint: R wrist injury Time Seen by Provider: 05/02/24 20:41 Source: patient Mode of arrival: ambulatory Limitations: no limitations History of Present Illness ED Provider: Edith Garcia NP HPI Narrative: Patient is a 53-year-old female who presents emergency department for evaluation of a mechanical slip and fall on ice on an outstretched hand on the right resulting in pain and swelling. Denies numbness tingling or cold sensation to the hand. She denies associated head strike or loss of consciousness. No use of anticoagulants or known coagulation disorders. Related Data Home Medications ?Medication ?Instructions ?Recorded ?Confirmed albuterol sulfate 90 mcg/actuation 2 puff inhalation Q6H PRN 03/13/22 03/13/22 aerosol inhaler (ProAir HFA) fluticasone propionate 110 2 puff inhalation BID 03/13/22 03/13/22 mcg/actuation HFA aerosol inhaler (Flovent HFA) triamcinolone acetonide 55 mcg 1 spray intranasal DAILY 03/13/22 03/13/22 nasal spray aerosol (Nasacort) Previous Rx's ?Medication ?Instructions ?Recorded amoxicillin 875 mg-potassium 1 tab PO BID 7 days #14 tabs 06/03/22 clavulanate 125 mg tablet ciprofloxacin 0.3 %-dexamethasone 4 drp otic (ears) BID 7 days #7.5 06/03/22 0.1 % ear drops,suspension mL (Ciprodex) fluticasone propionate 50 2 spray intranasal DAILY #16 grams 06/03/22 mcg/actuation nasal spray,suspension (Flonase Allergy Relief) benzonatate 200 mg capsule 200 mg PO TID PRN cough #30 caps 08/07/22 prednisone 20 mg tablet 40 mg (2 x 20 mg) PO DAILY #10 tabs 08/07/22 naproxen 500 mg tablet 500 mg PO BID PRN pain #30 tabs 06/10/23 benzonatate 100 mg capsule 100 mg PO BID PRN cough #20 caps 07/10/23 prednisone 20 mg tablet 40 mg (2 x 20 mg) PO DAILY 5 days 07/10/23 #10 tabs lidocaine 5 % topical patch 1 patch topical DAILY #15 ea 08/29/23 (Lidoderm) naproxen 500 mg tablet 500 mg PO BID PRN pain #30 tabs 08/29/23 ibuprofen 600 mg tablet 600 mg PO Q8H PRN pain #30 tabs 05/02/24 Allergies Allergy/AdvReac Type Severity Reaction Status Date / Time No Known Allergies Allergy Verified 05/02/24 17:29 Review of Systems Review of Systems: Yes all other systems are reviewed and are negative [facility] Past Medical History Attestation statement: The following information was validated with the patient. 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 Vitamin D deficiency GERD (gastroesophageal reflux disease) H/O Russel thyroiditis SLE (systemic lupus erythematosus) Anxiety Organic depressive disorder Menorrhagia Pleural effusion Consolidation lung Abnormal chest CT Allergic rhinitis Asthma COVID Surgical History H/O tubal ligation Presence of silicone breast implant History of esophagogastroduodenoscopy (EGD) Family History Family History Mother Asthma CAD (coronary artery disease) Myocardial infarct Hypertension Hypercholesteremia Sister Arthritis Sister Diabetes Physical Exam Vital Signs: Vital Signs: Last Vital Signs Temp 97.8 F 05/02/24 17:28 Pulse 88 05/02/24 17:28 Resp 16 05/02/24 17:28 BP 130/88 05/02/24 17:28 Pulse Ox 100 05/02/24 17:28 O2 Del Method Room Air 05/02/24 17:28 BMI result Body Mass Index 19.6 Appearance: Alert.?Oriented to person, place and time. No acute distress.?Normal affect. CVS: Heart sounds normal. Normal heart rate and rhythm.? Pulses normal.?? Respiratory: No respiratory distress.? Lung sounds clear to auscultation bilaterally?? Abdomen: Soft and non-tender. Normoactive bowel sounds. Skin: Skin warm and dry.? Normal skin color.? ? Extremities: Localized swelling to the right wrist. Full range of motion to the digits. 2+ radial pulse. Neuro: Moves all extremities spontaneously. Sensation intact bilaterally. No focal neuro deficits. Ambulates with normal steady gait. Course Course Course Narrative: This is an RME: Additional HPI, ROS, PE not included below will be deferred to primary provider. RME assessment and note performed by: Alyssa Washington PA-C This is a [id number]-female who presents emergency department with complaints of right hand and wrist pain status post slip and fall on ice. No head strike or LOC. No anticoagulation use. Obvious bony deformity noted with strong radial pulse. Plan: X-ray Medications Administered Discontinued Medications Generic Name Dose Route Start Last Admin Trade Name Lokesh PRN Reason Stop Dose Admin Acetaminophen 975 mg 05/02/24 17:31 05/02/24 17:35 Acetaminophen 325 Mg Tablet PO 05/02/24 17:32 975 mg ONCE ONE Administration Medical Decision Making Medical Decision Making MDM Narrative: Patient is a 53-year-old female who presents emergency department for evaluation reports a mechanical slip and fall on the ice onto an outstretched hand resulting in pain to the right wrist. XR obtain affirming distal radius and ulnar styloid fracture. Neurovascularly intact distally. She was placed in a sugar-tong splint, remained neurovascularly intact distally after application. provided with a sling facilitate weight of the splinting, instructed on conservative treatment and outpatient follow-up with orthopedics. All questions answered. Differential Diagnosis Differential Diagnoses: The differential diagnosis associated with the presentation includes (Fracture, dislocation, sprain) Independent Interpretation I performed an independent interpretation of an: Plain X-Ray (Distal radius / distal ulnar fracture on the right) Radiology Impression Discussion of test interpretation with radiology: I have reviewed the radiologist's reading. Radiologist Impression: IMPRESSION: 1. Acute mildly displaced mildly-comminuted intra-articular distal radial fracture and nondisplaced fracture of the ulnar styloid process. No dislocation. External Record Review External record reviewed: Outpatient record Prescription Management I considered prescription management with: Pain Medication Procedures Orthopedic Splinting/Casting Injury #1: Side: right Upper Extremity Injury Location: wrist Upper Extremity Immobilizer: sugar tong splint Discharge Plan Discharge Clinical Impression: Distal radius fracture, right, Fracture of right ulnar styloid Patient Disposition: Home, Self-Care Instructions: Wrist Fracture in Adults (ED) Additional Instructions: You can take ibuprofen 200 mg, 3 tablets (600mg) every 6-8 hours as needed for pain, in addition to Tylenol 500 mg, 2 tablets (1,000mg) every 4-6 hours as needed for pain, but not to exceed 3 doses daily (3,000mg).? Leave the splint on at all times. It can not get wet. You may use the sling to help with the weight of the splint on the arm. Apply ice for 10-15 minutes 3-4 times daily. Tomorrow you need to contact the Orthopedics office; they will not contact you. Return with any new or worsening symptoms or concerns Prescriptions: New ibuprofen 600 mg tablet 600 mg PO Q8H PRN (Reason: pain) Qty: 30 0RF No Action ciprofloxacin-dexamethasone [Ciprodex] 0.3-0.1 % drops,suspension 4 drp otic (ears) BID 7 Days Qty: 7.5 0RF fluticasone propionate [Flonase Allergy Relief] 50 mcg/actuation spray,suspension 2 spray intranasal DAILY Qty: 16 0RF Rx Instructions: administer into each nostril amoxicillin-pot clavulanate 875-125 mg tablet 1 tab PO BID 7 Days Qty: 14 0RF prednisone 20 mg tablet 40 mg PO DAILY 5 Days Qty: 10 0RF benzonatate 100 mg capsule 100 mg PO BID PRN (Reason: cough) Qty: 20 0RF benzonatate 200 mg capsule 200 mg PO TID PRN (Reason: cough) Qty: 30 0RF prednisone 20 mg tablet 40 mg PO DAILY Qty: 10 0RF naproxen 500 mg tablet 500 mg PO BID PRN (Reason: pain) Qty: 30 0RF lidocaine [Lidoderm] 5 % adhesive patch,medicated 1 patch topical DAILY Qty: 15 0RF Rx Instructions: leave on most painful area for up to 12 hrs albuterol sulfate [ProAir HFA] 90 mcg/actuation HFA aerosol inhaler 2 puff inhalation Q6H PRN fluticasone propionate [Flovent HFA] 110 mcg/actuation HFA aerosol inhaler 2 puff inhalation BID triamcinolone acetonide [Nasacort] 55 mcg aerosol,spray 1 spray intranasal DAILY Rx Instructions: administer into each nostril naproxen 500 mg tablet 500 mg PO BID PRN (Reason: pain) Qty: 30 0RF Referrals: [facility] [place] Orthopedic Surgeons [Provider Group] (Distal radius and ulnar styloid fracture) Stand Alone Forms: Work/School Release Print Language: Latvian
[2024-05-02] MEDS: Acetaminophen 325 MG TABLET 975 MG PO (17:35)
[2024-05-02 21:49] VITALS: BP 136/88; PULSE 89; RESP 18; TEMP 36.6; O2SAT 100
[2024-05-02 21:55] VITALS: BP 144/81; PULSE 75; RESP 14; TEMP 36.1; O2SAT 97
[2024-05-02 21:57] VITALS: BP 144/81; PULSE 75; RESP 14; TEMP 36.1; O2SAT 97
== END 2024-05-02 21:58 | disposition home or self-care (01) ==
PROVIDERS: Emergency Provider Emergency Medicine
DX: S52.514A Nondisplaced fracture of right radial styloid process, initial encounter for closed fracture (principal); W00.0XXA Fall on same level due to ice and snow, initial encounter; Y93.89 Activity, other specified; Y92.9 Unspecified place or not applicable; Y99.9 Unspecified external cause status; M79.641 Pain in right hand
CPT/HCPCS: 73110; 73130; 99284

== ENCOUNTER → 2024-05-02 17:31 | Outpatient (BNV) | payer OTHER, SELFPAY | PROVIDERS: Visit Provider Specialist | DX: S52.571A Other intraarticular fracture of lower end of right radius, initial encounter for closed fracture (principal); S52.514A Nondisplaced fracture of right radial styloid process, initial encounter for closed fracture | CPT/HCPCS: 73110; 73130 ==

== ENCOUNTER 2024-05-05 13:17 | Outpatient (REF) | payer SELFPAY ==
--- NOTE | ~2024-05-05 | XR_ITS ---
CLINICAL HISTORY: M25.531 - Pain in right wrist 3 view right wrist Comparison: None Findings: There is a comminuted intra-articular distal radial fracture with dorsal angulation of the distal fragments. There is an ulnar styloid process fracture. No significant loss of joint space, osteophyte, or erosions. No radiopaque foreign body. IMPRESSION: 1. Angulated comminuted intra-articular distal radial fracture. 2. Ulnar styloid process fracture This document has been electronically signed by: Emmanuel Foote MD on 05/06/2024 08:57:08
--- OUTSIDE RECORDS SUMMARY | 2024-05-05 15:39 | XMS_ITS | Clinical Summary ---
Author Organization [facility] [address] [facility] Address [address] [place] [phone] Phone Care Team Providers Care Dielectric Testing Machine Operator Name Role Phone Emmanuelle Upton MD Primary Care Provider [phone] Allergies No known active allergies Medications Medication Sig Dispensed Refills Start Date End Date Status medroxyPROGESTERone (PROVERA) 5 mg tablet TAKE 2 TABLETS BY MOUTH EVERY DAY 60 tablet 1 02/29/2024 Active ergocalciferol (VITAMIN D-2) 1,250 mcg (50,000 unit) capsule Take 1 Capsule by mouth once a week. For 4 weeks 10/08/2023 Active albuterol HFA (Ventolin HFA) 90 mcg/actuation inhaler Take 2 Puffs by mouth every 6 hours as needed for Cough or Wheezing. 10/07/2023 Active benzonatate (TESSALON) 100 mg capsule TAKE 1 CAPSULE BY MOUTH TWICE A DAY NEEDED FOR COUGH 07/10/2023 Active fluticasone HFA (Flovent HFA) 110 mcg/actuation inhaler Inhale 2 Puffs into the lungs 2 times daily. *please close arnuity and dispense flovent* 10/07/2023 Active triamcinolone (NASACORT) 55 mcg nasal inhaler 55 mcg by Nasal route daily. 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 Pos THONY, anti DNA. Neg Sjogren's Ab, Anti-PETRONA. 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 GERD (gastroesophageal reflux disease) 7 Overview (03/01/2024): Hx Hpylori 2012 Complete situs inversus with dextrocardia 2016 Immunizations Name Administration Dates Next Due Influenza Quadravalent, MDCK , 0.5ml, preservative free (Flucelvax) 6mo and older 06/17/2019,02/12/2018 PPD Test 03/22/2018 Pneumococcal conjugate 20 va lent (Prevnar 20, PCV 20) 2mo and older 03/24/2023 Tdap Tetanus diptheria acell ular pertussis (Boostrix; Adacel) 7yo and older 03/24/2023,10/07/2011 Surgical History Surgery Date Site/Laterality Comments TUBAL LIGATION PROCEDURE: HISTORICAL TUBAL LIGATION ESOPHAGOGASTRODUODENOSCOPY 07/27/2012 PROCEDURE: NE ESOPHAGOGASTRODUODENOSCOPY TRANSORAL DIAGNOSTIC; COMMENT: Dr. 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 Pos THOYN, anti DNA. Neg Sjogren's Ab, Anti-PETRONA. On hydroxychloroquine - 2015 Family History Medical History Relation Name Comments Arthritis Daughter No Known Problems Father does not k now Coronary artery disease Maternal Grandmother Asthma Mother diabetes, CAD, [place]-pacemaker, HTN, hypercholesterolemia Diabetes Sister 1 Diabetes Sister 2 Breast cancer Neg Hx Colon cancer Neg Hx Relation Name Status Comments Daughter Alive Father Alive Maternal Grandfather Maternal Grandmother Mother Alive Sister 1 Alive Sister 2 Alive Social History Tobacco Use Types Packs/Day Years Used Date Smoking Tobacco: Some Days Cigarettes 0 35.1 Started: 04/13/1989 Smokeless Tobacco: Never Alcohol Use Standard Drinks/Week Comments No 0 (1 standard drink = 0.6 oz pur e alcohol) Sex and Gender Information Value Date Recorded Sex Assigned at Not on file Gender Identity Not on file Sexual Orientation Not on file Job Start Date Occupation Industry Not on file Not on file Not on file Obstetrics History Last Filed Vital Signs Vital Sign Reading Time Taken Comments Blood Pressure 112/68 10/07/2023 10:52 AM EDT Pulse 86 10/07/2023 10:52 AM EDT Temperature - - Respiratory Rate - - Oxygen Saturation - - Inhaled Oxygen Concentration - - Weight 49.6 kg (109 lb 6.4 oz) 10/07/2023 10:52 AM EDT Height 167.6 cm (5' 6 ) 10/07/2023 10:52 AM EDT Body Mass Index 17.66 10/07/2023 10:52 AM EDT Plan of Treatment Health Maintenance Due Date Last Done Comments Hepatitis A Vaccines (1 of 2 - Risk 2-dose series) 1988 Hepatitis B Vaccines (1 of 3 - 19+ 3-dose series) 1988 Zoster Vaccines (1 of 2) 12/10/2019 Breast Cancer Screening 05/26/2020 05/26/2018 Colorectal Cancer Screening: Colonoscopy 03/22/2022 HIV Screening 03/22/2022 Social Influencers of Health Screening 03/22/2022 COVID-19 Vaccine ( - 2023-2 5 season) 2023 Influenza Vaccine (#1) 2023 0, 02/12/2018 Depression Screening 03/24/2024 03/24/2023 Cervical Cancer Screening: HPV 06/19/2027 06/18/2022 Cholesterol Screening (Lipid Panel) 03/24/2028 03/24/2023 DTaP,Tdap,and Td Vaccines (3 - Td or Tdap) 03/24/2033 03/24/2023, 10/07/2011 Hepatitis C Screening Completed 06/23/2018 Pneumococcal Vaccine: Pediatrics (0 to 5 Years) and At-Risk Patients (6 to 64 Years) Completed 03/24/2023 HIB Vaccines Aged Out No longer eligi ble based on patient's age to complete this topic HPV Vaccines Aged Out No longer eligi ble based on patient's age to complete this topic IPV Vaccines Aged Out No longer eligi ble based on patient's age to complete this topic MMR Vaccines Aged Out No longer eligi ble based on patient's age to complete this topic Meningococcal ACWY Vaccine Aged Out N o longer eligible based on patient's age to complete this topic RSV Immunization Patients Under 20 months Aged Out No longer eligible b ased on patient's age to complete this topic Varicella Vaccines Aged Out No longer eligible based on patient's age to complete this topic Procedures Procedure Name Priority Date/Time Associated Diagnosis Comments DEPRESSION SCREENING Routine 03/24/2023 LIPID PANEL Routine 03/24/2023 HPV Routine 06/18/2022 HEPATITIS C SCREENING Routine 06/23/2018 SCR MAMMO BI INCL CAD Routine 05/26/2018 1:12 PM EST Encounter for screening mammogram for malignant neoplasm of breast from Last 3 Months or Most Recently Relevant to Health Maintenance Results * Depression Screening (03/24/2023) Pathologist [facility] Depression Screening abstracted Historical Provider MD RYAN Florez * (ABNORMAL) Lipid panel (03/24/2023) LDL/HDL Ratio 4 0 - 4 Triglycerides 66 0 - 150 mg/dL Cholesterol 113 0 - 200 mg/dL HDL 29(A) 40 mg/dL LDL Cholesterol 71 0 - 100 mg/dL Blood Venous blood specimen / Unknown Historical Provider LAB BLOOD ORDERAB LES * Cervical Cancer Screening: HPV (06/18/2022) Pathologist [facility] Cervical Cancer Screening: HPV abstracted, negative Historical Provider [facility] * Hepatitis C Screening (06/23/2018) Pathologist [facility] Hepatitis C Screening abstracted Historical Provider [facility] * SCR MAMMO BI INCL CAD (05/26/2018 1:12 PM EST) Anatomical Region Laterality Modality Radiographic Eliza ging 02/12/2018 11:2 9 AM EDT Narrative 05/27/2018 3:43 PM EST This is a summary report. The complete report is available in the patient's medical record. If you cannot access the medical record, please contact the sending organization for a detailed fax or copy. Indication: Baseline screening. Comparison: None available. Technique: Bilateral CC and MLO projections were obtained, utilizing standard and implant displaced technique. Exaggerated CC views were also obtained bilaterally. CAD software was utilized during image interpretation. Findings: The breasts are composed of fatty and fibroglandular tissue. ??Bilateral subpectoral implants are in place. No suspicious mass, architectural distortion or suspicious calcifications are identified throughout the right breast. Circumscribed focal asymmetry at the middle one third of the inferomedial left breast. No associated architectural distortion or suspicious microcalcifications. IMPRESSION: : Circumscribed nodule at the middle one third of the inferomedial left breast for which focused sonographic evaluation is recommended. The patient will be recalled by the radiology department for additional diagnostic imaging. BI-RADS 0-incomplete; needs additional imaging evaluation. 5 year breast cancer risk assessment 0.5 % Lifetime breast cancer risk assessment 4.7 % Breast cancer risk category Low (<15%) Procedure Note Kristin Frausto, - 04/01/2022 This is a summary report. The complete report is available in thepatient's medical record. If you cannot access the medical record, pleasecontact the sending organization for a detailed fax or copy. Indication: Baseline screening. Comparison: None available. Technique: Bilateral CC and MLO projections were obtained, utilizingstandard and implant displaced technique. Exaggerated CC views were alsoobtained bilaterally. CAD software was utilized during imageinterpretation. Findings: The breasts are composed of fatty and fibroglandular tissue.Bilateral subpectoral implants are in place. No suspicious mass, architectural distortion or suspicious calcificationsare identified throughout the right breast. Circumscribed focal asymmetry at the middle one third of the inferomedialleft breast. No associated architectural distortion or suspiciousmicrocalcifications. IMPRESSION: : Circumscribed nodule at the middle one third of the inferomedial leftbreast for which focused sonographic evaluation is recommended. Thepatient will be recalled by the radiology department for additionaldiagnostic imaging. BI-RADS 0-incomplete; needs additional imaging evaluation. 5 year breast cancer risk assessment 0.5 % Lifetime breast cancer risk assessment 4.7 % Breast cancer risk category Low (<15%) Mary Perez MD IMG XR PROCEDURES from Last 3 Months or Most Recently Relevant to Health Maintenance Care Teams Dielectric Testing Machine Operator Relationship Specialty Start Date End Date Emmanuelle Upton MD [address] [place] [id number] PCP - General 06/18/22
== END 2024-05-05 13:18 | disposition home or self-care (01) ==
LOC: HO.HOSX 13:17
DX: S52.571D Other intraarticular fracture of lower end of right radius, subsequent encounter for closed fracture with routine healing (principal); S52.614D Nondisplaced fracture of right ulna styloid process, subsequent encounter for closed fracture with routine healing; M25.531 Pain in right wrist
CPT/HCPCS: 73110; 99202

== ENCOUNTER 2024-05-05 13:31 | Outpatient (AMB) | payer SELFPAY ==
--- NOTE | 2024-05-05 13:52 | MHC.OFFVIS ---
Vital Signs 05/05/24 13:53 Height 5 ft 6 in Weight 121 lb BMI 19.5 Intake Visit Reasons: FC-Right distal radius & Ulnar Styloid fx 05/02/24 Intake Note: Elinor is a 53 year old right hand dominant female who presents today for a fracture care visit s/p Right Distal Radius and ulnar styloid Fracture. On 05/02/23 she slipped and fell on ice landing on her outstretched right arm. She had an immediate onset of pain & swelling in the right wrist. She was seen at [facility] on the date of injury where she was placed in a sugar tong splint. Xrays updated in office. States her pain is not as bad any more. Denies numbness and tingling. Allergies No Known Allergies Allergy (Verified 05/05/24 13:55) HPI HPI FC-Right distal radius & Ulnar Styloid fx 05/02/24: Details: Elinor is a 53 year old right hand dominant female who presents today for a fracture care visit s/p Right Distal Radius and ulnar styloid Fracture. On 05/02/23 she slipped and fell on ice landing on her outstretched right arm. She had an immediate onset of pain & swelling in the right wrist. She was seen at [facility] on the date of injury where she was placed in a sugar tong splint. Xrays updated in office. States her pain is not as bad any more. Denies numbness and tingling. 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 Vitamin D deficiency GERD (gastroesophageal reflux disease) H/O Russel thyroiditis SLE (systemic lupus erythematosus) Anxiety Organic depressive disorder Menorrhagia Pleural effusion Consolidation lung Abnormal chest CT Allergic rhinitis Asthma COVID Surgical History H/O tubal ligation Presence of silicone breast implant History of esophagogastroduodenoscopy (EGD) Family History Mother Asthma CAD (coronary artery disease) Myocardial infarct Hypertension Hypercholesteremia Sister Arthritis Sister Diabetes Social History (Updated 05/05/24 @ 13:56 by Denise Cigaran, CCMA) Current occupational status: employed Current occupation: [employer] / rt hand Review of Systems Const All systems reviewed & are unremarkable except as noted in HPI and below Physical Exam Vital Signs: BMI result Body Mass Index 19.5 Extrem Other: Patient is alert, oriented, and in no acute distress. Neuro: Normal sensation of the tips of all digits of the right hand at this time Vascular: Cap refill brisk Pain: Patient has significant tenderness to palpation about the right wrist ROM: Patient is able to make a closed fist and extend all digits of the right hand fully and without difficulty Skin: No lacerations or abrasions. General: No ecchymosis, erythema, or evidence of infection. Psych: Appears grossly normal Affect normal Attitude cooperative Results Reviewed Results Reviewed: X-rays obtained in the office today and independently reviewed by me, Rip Gna PA-C, demonstrate displaced fracture of the right distal radius with approximately 15-20 degrees of apex volar angulation. Assessment & Plan Assessment & Plan (1) Distal radius fracture, right: Code(s): S52.501A - Unspecified fracture of the lower end of right radius, initial encounter for closed fracture Category: Medical Plan 1. Right distal radius fracture Date of injury 05/02/2024 I educated the patient about the condition. I discussed both operative and nonoperative treatment options. The patient would like to proceed with surgery. \ The risks and benefits of operative treatment were discussed with the patient and the patient wishes to proceed with surgery. These risks include, but are not limited to, risk of damage to blood vessels, nerves, tendons, infection, recurrence, incomplete relief of preoperative symptoms, persistent pain, possible need for further surgery, and the risks associated with regional blocks and/or anesthesia. Plan is to take the patient to the operating room at some point on , 05/12/2024 for the following procedures: 1. Right distal radius ORIF under general anesthesia All of the preoperative paperwork including the consent was discussed today. All of the patient's questions were answered in the clinic today. The patient understands that they will be in contact with our surgical supervisor to discuss scheduling their procedure. Patient denies diabetes, blood thinners, asthma, heart issues, lung issues, kidney issues, or current smoking. As the patient does not have any current health insurance, she was referred to our financial counseling department for discussion of potential short-term health insurance to help her cover the cost of her surgery or other ways to cover the cost of her surgery Patient is also educated that due to not having health insurance, if there is nothing are financial counseling department can do, she will be responsible for covering the cost out pocket Patient states understanding of this Orders: Orders XR wrist RT min 3V Today M25.531 - Pain in right wrist Coding Level of Care Code New Pt Level 4 (51384) Diagnoses Distal radius fracture, right S52.501A
[2024-05-05 13:53] VITALS: BMI 19.5
== END 2024-05-05 14:48 | disposition home or self-care (01) ==
DX: S52.501A Unspecified fracture of the lower end of right radius, initial encounter for closed fracture (principal); W00.0XXA Fall on same level due to ice and snow, initial encounter
CPT/HCPCS: 99204

== ENCOUNTER 2024-05-17 08:49 | Outpatient (REF) | payer OTHER, SELFPAY ==
--- NOTE | ~2024-05-17 | XR_ITS ---
CLINICAL HISTORY: M25.531 - Pain in right wrist 3 view right wrist Comparison: DX/CO - XR WRIST RT MIN 3V - 05/05/24 13:35 EST Findings: Comminuted intra-articular distal radial fracture demonstrates mild improved alignment. Fracture lines remain visible with some early changes of healing. Tiny ulnar styloid fracture. IMPRESSION: 1. Healing comminuted intra-articular distal radial fracture. This document has been electronically signed by: Rosibel Espinoza MD on 05/19/2024 06:40:42
--- OUTSIDE RECORDS SUMMARY | 2024-05-18 08:55 | XMS_ITS | Clinical Summary ---
Author Organization [facility] [employer] [facility] Address [address] [facility] [address] [place] [address] Care Team Providers Care Commercial Field Inspector Name Role Phone Unavailable Primary Care Provider [...] Adults 18 yrs or above (or HM Modifier)([facility]) 12/10/1987 Hepatitis C Virus Infection in Adolescents and Adults: Screening (or Modifier) ([facility]) 12/10/1987 [facility] Screening Reminder: Beba torres for all adults ([facility]) 12/10/1987 Tobacco Smoking Cessation: i n Adults excluding Women: Behavioral and Pharmacotherapy Interventions ([facility]) 12/10/1987 DTaP/Tdap/Td Vaccines ([facility]) (1 - Tdap) 1988 Cervical Cancer Screenin 1-65 yrs of age (or Modifier) 1990 Cervical Cancer Screening: P ap every 3 yrs pts age 21-65 1990 Cervical Cancer: Pap Screeni ng with Modifier timing ([facility]) 1990 Cervical Cancer: hrHPV alone or with cotesting Pap for Pts 30-65yrs screening every 5yrs ([facility]) 1990 Colorectal Cancer Screening 45 -75 Yrs (or HM Modifier) 2014 Colorectal Cancer: FLEXIBLE SIGMOIDOSCOPY Screening every 5 yrs 2014 Colorectal Cancer: Fecal Immunochemical Test (FIT) [facility] 2014 Colorectal Cancer: High-sens itivity gFOBT Screening Annually [facility] 2014 Colorectal Cancer: Stool Col oguard Screening every 3 yrs 2014 Colorectal Cancer:CT Colonog rajinder Screening every 5 yrs 2014 Lipid Screening: Every 5 yrs for Women aged 45+ (or HM Modifier) ([facility]) 12/10/2015 Breast Cancer: Screening Beba ually age 50-74 yrs (or HM Modifier)([facility]) 12/10/2019 Zoster/Shingles Vaccine Seri es Screening: Adults aged 18+ yrs (or HM Modifiers)([facility]) (1 of 2) 12/10/2019 Flu Vaccination: Yearly for ages 18mos through 64 years (or Modifier)([facility]) 11/12/2023 COVID-19 Vaccine Screening: Initial Series and Booster Status ([facility]) (2023- season) 2023 Pneumococcal Vaccination Scr eening: Pts 0-19 & 19-64 yrs of age ([facility]) Aged Out No longer eligible based on patient's age to complete this topic Medical Devices Not on file
--- OUTSIDE RECORDS SUMMARY | 2024-05-18 08:55 | XMS_ITS | Clinical Summary ---
Author Organization [facility] 444 [facility] Address [address] [place] [phone] Phone Care Team Providers Care Transport Driver Name Role Phone Emmanuelle Upton MD Primary Care Provider [phone] [phone] Allergies No known active allergies Medications Medication [...] PROCEDURE: HISTORICAL TUBAL LIGATION ESOPHAGOGASTRODUODENOSCOPY 07/27/2012 PROCEDURE: [place] ESOPHAGOGASTRODUODENOSCOPY TRANSORAL DIAGNOSTIC; COMMENT: Dr. Chip Randall [...] disease Maternal Grandmother Asthma Mother diabetes, CAD, [place]-pacemaker, HTN, hypercholesterolemia Diabetes Sister 1 Diabetes Sister [...] * Depression Screening (03/24/2023) Pathologist [facility] Depression Screening abstracted Historical Provider [...] Cancer Screening: HPV (06/18/2022) Pathologist [facility] Cervical Cancer Screening: HPV abstracted, negative Historical Provider [facility] E * Hepatitis C Screening (06/23/2018) Pathologist [facility] Hepatitis C Screening abstracted Historical Provider [facility] E * SCR MAMMO BI INCL [...] Recently Relevant to Health Maintenance Care Teams Transport Driver Relationship Specialty Start Date End Date Emmanuelle Upton MD [address] [place] [id number] PCP - General 06/18/22
== END 2024-05-17 08:50 | disposition home or self-care (01) ==
LOC: HO.HOSX 08:49
PROVIDERS: Visit Provider Orthopaedic Surgery
DX: M25.531 Pain in right wrist (principal); S52.501A Unspecified fracture of the lower end of right radius, initial encounter for closed fracture; S52.611A Displaced fracture of right ulna styloid process, initial encounter for closed fracture; M32.9 Systemic lupus erythematosus, unspecified
CPT/HCPCS: 29075; 73110; 99212

== ENCOUNTER 2024-05-17 14:36 | Outpatient (AMB) | payer OTHER, SELFPAY ==
--- OUTSIDE RECORDS SUMMARY | 2024-05-17 14:37 | XMS_ITS | Clinical Summary ---
Author Organization [facility] [employer] [facility] Address [address] [facility] [address] [place] [address] Care Team Providers Care Dredge Operator Supervisor Name Role Phone Unavailable Primary Care Provider Unavailabl e Immunizations Name Administration Dates Next Due PPD Test 11/29/2020 Social History Tobacco Use Types Packs/Day Years Used Date Smoking Tobacco: Never Assessed Comments Unknown Sex and Gender Information Value Date Recorded Sex Assigned at Not on file Legal Sex Female 12:32 PM EDT Gender Identity Not on file Sexual Orientation Not on file Plan of Treatment Health Maintenance Due Date Last Done Comments Colorectal Cancer: COLONOSCO PY Screening every 10 yrs (or Modifier) 1969 Depression: Screening Annual ly using PHQ-2/9 in Adults 18 yrs or above (or HM Modifier)([facility]) 12/10/1987 Hepatitis C Virus Infection in Adolescents and Adults: Screening (or Modifier) ([facility]) 12/10/1987 [facility] Screening Reminder: Beba torres for all adults ([facility]) 12/10/1987 Tobacco Smoking Cessation: i n Adults excluding Women: Behavioral and Pharmacotherapy Interventions ([facility]) 12/10/1987 DTaP/Tdap/Td Vaccines ([facility]) (1 - Tdap) 1988 Cervical Cancer Screenin 1-65 yrs of age (or Modifier) 1990 Cervical Cancer Screening: P ap every 3 yrs pts age 21-65 1990 Cervical Cancer: Pap Screeni ng with Modifier timing ([facility]) 1990 Cervical Cancer: hrHPV alone or with cotesting Pap for Pts 30-65yrs screening every 5yrs ([facility]) 1990 Colorectal Cancer Screening 45 -75 Yrs (or HM Modifier) 2014 Colorectal Cancer: FLEXIBLE SIGMOIDOSCOPY Screening every 5 yrs 2014 Colorectal Cancer: Fecal Immunochemical Test (FIT) [facility] 2014 Colorectal Cancer: High-sens itivity gFOBT Screening Annually [facility] 2014 Colorectal Cancer: Stool Col oguard Screening every 3 yrs 2014 Colorectal Cancer:CT Colonog rajinder Screening every 5 yrs 2014 Lipid Screening: Every 5 yrs for Women aged 45+ (or HM Modifier) ([facility]) 12/10/2015 Breast Cancer: Screening Beba ually age 50-74 yrs (or HM Modifier)([facility]) 12/10/2019 Zoster/Shingles Vaccine Seri es Screening: Adults aged 18+ yrs (or HM Modifiers)([facility]) (1 of 2) 12/10/2019 Flu Vaccination: Yearly for ages 18mos through 64 years (or Modifier)([facility]) 11/12/2023 COVID-19 Vaccine Screening: Initial Series and Booster Status ([facility]) (2023- season) 2023 Pneumococcal Vaccination Scr eening: Pts 0-19 & 19-64 yrs of age ([facility]) Aged Out No longer eligible based on patient's age to complete this topic Medical Devices Not on file
--- OUTSIDE RECORDS SUMMARY | 2024-05-17 14:38 | XMS_ITS | Clinical Summary ---
Author Organization [facility] [address] [facility] Address [address] [place] [phone] Phone Care Team Providers Care Fleet Service Manager Name Role Phone Emmanuelle Upton MD Primary Care Provider [phone] Allergies No known active allergies Medications Medication [...] PROCEDURE: HISTORICAL TUBAL LIGATION ESOPHAGOGASTRODUODENOSCOPY 07/27/2012 PROCEDURE: [place] ESOPHAGOGASTRODUODENOSCOPY TRANSORAL DIAGNOSTIC; COMMENT: Dr. Chip Randall [...] geno (HCC); COMMENT: Onset in . Pos THONY, anti DNA. Neg Sjogren's Ab, Anti-PETRONA. On hydroxychloroquine - 2015 Family History Medical History Relation Name Comments Arthritis Daughter No Known Problems Father does not k now Coronary artery disease Maternal Grandmother Asthma Mother diabetes, CAD, [place]-pacemaker, HTN, hypercholesterolemia Diabetes Sister 1 Diabetes Sister [...] Maintenance Results * Depression Screening (03/24/2023) Pathologist [facility] Depression Screening abstracted Historical Provider MD RYAN Florez * (ABNORMAL) Lipid panel (03/24/2023) LDL/HDL Ratio 4 0 - 4 Triglycerides 66 0 - 150 mg/dL Cholesterol 113 0 - 200 mg/dL HDL 29(A) 40 mg/dL LDL Cholesterol 71 0 - 100 mg/dL Blood Venous blood specimen / Unknown Historical Provider LAB BLOOD ORDERAB LES * Cervical Cancer Screening: HPV (06/18/2022) Pathologist [facility] Cervical Cancer Screening: HPV abstracted, negative Historical Provider [facility] * Hepatitis C Screening (06/23/2018) Pathologist [facility] Hepatitis C Screening abstracted Historical Provider [facility] * SCR MAMMO BI INCL CAD [...] Recently Relevant to Health Maintenance Care Teams Fleet Service Manager Relationship Specialty Start Date End Date Emmanuelle Upton MD [address] [place] [phone] PCP - General 06/18/22
[2024-05-17 14:43] VITALS: BMI 19.5
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
== END 2024-05-17 15:37 | disposition home or self-care (01) ==
PROVIDERS: Visit Provider Orthopaedic Surgery
DX: S52.501A Unspecified fracture of the lower end of right radius, initial encounter for closed fracture (principal); S52.611A Displaced fracture of right ulna styloid process, initial encounter for closed fracture; M32.9 Systemic lupus erythematosus, unspecified
CPT/HCPCS: 29075; 99214

== ENCOUNTER → 2024-05-17 14:37 | Outpatient (BNV) | payer OTHER, SELFPAY | PROVIDERS: Visit Provider Radiology Diagnostic Radiology | DX: S52.571A Other intraarticular fracture of lower end of right radius, initial encounter for closed fracture (principal) | CPT/HCPCS: 73110 ==

== ENCOUNTER 2024-05-31 10:06 | Outpatient (REF) | payer OTHER, SELFPAY ==
--- NOTE | ~2024-05-31 | XR_ITS ---
CLINICAL HISTORY: M25.531 - Pain in right wrist 3 view right wrist Comparison: DX - XR WRIST RT MIN 3V - 05/17/24 14:37 EST Findings: No change in alignment of distal radial fracture. No significant arthritic change or erosions. No radiopaque foreign body. IMPRESSION: No change in distal radial fracture. This document has been electronically signed by: Vernon Portillo MD on 06/01/2024 15:02:03
--- OUTSIDE RECORDS SUMMARY | 2024-05-31 11:02 | XMS_ITS | Clinical Summary ---
Author Organization [facility] Health & [facility] Address [address] [place] [address] Care Team Providers Care Animal Caregiver Name Role Phone Unavailable Primary Care Provider [...] yrs or above (or HM Modifier)([facility]) 12/10/1987 Hepatitis C Virus Infection in Adolescents and Adults: Screening (or Modifier) ([facility]) 12/10/1987 [facility] Screening Reminder: Beba torres for all adults ([facility]) 12/10/1987 Tobacco Smoking Cessation: i n Adults excluding Women: Behavioral and Pharmacotherapy Interventions ([facility]) 12/10/1987 DTaP/Tdap/Td Vaccines ([facility]) (1 - Tdap) 1988 Cervical Cancer Screenin 1-65 yrs of age (or Modifier) 1990 Cervical Cancer Screening: P ap every 3 yrs pts age 21-65 1990 Cervical Cancer: Pap Screeni ng with Modifier timing ([facility]) 1990 Cervical Cancer: hrHPV alone or with cotesting Pap for Pts 30-65yrs screening every 5yrs ([facility]) 1990 Colorectal Cancer Screening 45 -75 Yrs (or HM Modifier) 2014 Colorectal Cancer: FLEXIBLE SIGMOIDOSCOPY Screening every 5 yrs 2014 Colorectal Cancer: Fecal Immunochemical Test (FIT) Annually [facility] 2014 Colorectal Cancer: High-sens itivity gFOBT Screening Annually [facility] 2014 Colorectal Cancer: Stool Col oguard Screening every 3 yrs 2014 Colorectal Cancer:CT Colonog rajinder Screening every 5 yrs 2014 Lipid Screening: Every 5 yrs for Women aged 45+ (or HM Modifier) ([facility]) 12/10/2015 Breast Cancer: Screening Beba ually age 50-74 yrs (or HM Modifier)([facility]) 12/10/2019 Zoster/Shingles Vaccine Seri es Screening: Adults aged 18+ yrs (or HM Modifiers)([facility]) (1 of 2) 12/10/2019 Flu Vaccination: Yearly for ages 18mos through 64 years (or Modifier)([facility]) 11/12/2023 COVID-19 Vaccine Screening: Initial Series and Booster Status ([facility]) (2023- season) 2023 Pneumococcal Vaccination Scr eening: Pts 0-19 & 19-64 yrs of age ([facility]) Aged Out No longer eligible based on patient's age to complete this topic Medical Devices Not on file
--- OUTSIDE RECORDS SUMMARY | 2024-05-31 11:02 | XMS_ITS | Clinical Summary ---
Author Organization [facility] 444 [facility] Address [address] [place] [phone] Phone Care Team Providers Care Horticultural Services Supervisor Name Role Phone Emmanuelle Upton MD Primary Care Provider [phone] Allergies No known active allergies Medications ergocalciferol (VITAMIN D-2) 1,250 mcg (50,000 unit) capsule Take 1 Capsule by mouth once a week. For 4 weeks 4 Active albuterol HFA (Ventolin HFA) 90 mcg/actuation inhaler Take 2 Puffs by mouth every 6 hours as needed for Cough or Wheezing. 4 Active benzonatate (TESSALON) 100 mg capsule TAKE 1 CAPSULE BY MOUTH TWICE A DAY NEEDED FOR COUGH 4 Active fluticasone HFA (Flovent HFA) 110 mcg/actuation inhaler Inhale 2 Puffs into the lungs 2 times daily. *please close arnuity and dispense flovent* 4 Active triamcinolone (NASACORT) 55 mcg nasal inhaler 55 mcg by Nasal route daily. 1 Active medroxyPROGESTE Naseem (PROVERA) 5 mg tablet Take 2 tablets (10 mg total) by mouth 1 (one) time each day. 60 tablet 3 5 Active medroxyPROGESTE Naseem (PROVERA) 5 mg tablet TAKE 2 TABLETS BY MOUTH EVERY DAY 60 tablet 1 4 05/27/19 25 Discontinu ed(Reorder ) Active Problems Problem Noted Date Diagnosed Date [...] PROCEDURE: HISTORICAL TUBAL LIGATION ESOPHAGOGASTRODUODENOSCOPY 07/27/2012 PROCEDURE: [place] ESOPHAGOGASTRODUODENOSCOPY TRANSORAL DIAGNOSTIC; COMMENT: Dr. Chip Randall OTHER SURGICAL HISTORY 2013 Bilateral PROCEDURE: IMPLANT BREAST SILICONE/EQ Medical History [...] disease Maternal Grandmother Asthma Mother diabetes, CAD, [place]-pacemaker, HTN, hypercholesterolemia Diabetes Sister 1 Diabetes Sister [...] drink = 0.6 oz pur e alcohol) Comments Unknown Sex and Gender Information Value Date Recorded Sex Assigned at Not on file Legal Sex Female 10:47 PM EST Gender Identity Not on file Sexual Orientation Not on file Obstetrics History Last Filed [...] 10/07/2023 10:52 AM EDT Plan of Treatment Upcoming Encounters Date Type Department Care Team (Late st Contact Info) Description 08/10/2024 4:00 PM EDT Office Visit [facility] [address] [place] [address] Roselia Vigil DO [address] [place] [address] Health Maintenance Due Date Last Done Comments Hepatitis A Vaccines (1 of 2 - Risk 2-dose series) 1988 Hepatitis B Vaccines (1 of 3 - 19+ 3-dose series) 1988 Zoster Vaccines (1 of 2) 12/10/2019 Breast Cancer Screening 05/26/2020 05/26/2018 Colorectal Cancer Screening: Colonoscopy 03/22/2022 HIV Screening 03/22/2022 Social Influencers of Health Screening 03/22/2022 COVID-19 Vaccine (1 - 2023-2 5 season) 2023 Influenza Vaccine (#1) 2023 , 02/12/2018 Depression Screening 03/24/2024 03/24/2023 Cervical Cancer Screening: HPV 06/19/2027 06/18/2022 Cholesterol Screening (Lipid Panel) 03/24/2028 03/24/2023 DTaP,Tdap,and Td Vaccines (3 - Td or Tdap) 03/24/2033 03/24/2023, 10/07/2011 Hepatitis C Screening Completed 06/23/2018 Pneumococcal Vaccine: 50+ Years Completed 03/24/2023 Pneumococcal Vaccine: Pediatrics (0 to 5 Years) [...] patient's age to complete this topic Meningococcal B Vacine Aged Out No lo nger eligible based on patient's age to complete this topic RSV Immunization Patients Under 20 months Aged Out No longer eligible b ased on patient's age to complete this topic Varicella Vaccines Aged Out No longer eligible based on patient's age to complete this topic Procedures Procedure Name Priority Date/Time Associated Diagnosis Comments HM DEPRESSION SCREENING Routine 03/24/2023 LIPID PANEL Routine 03/24/2023 HPV Routine 06/18/2022 HEPATITIS C SCREENING Routine 06/23/2018 SCR MAMMO BI INCL CAD Routine 05/26/2018 1:12 PM EST Encounter for screening mammogram for malignant neoplasm of breast from Last 3 Months or Most Recently Relevant to Health Maintenance Results * Depression Screening (03/24/2023) Pathologist [facility] Depression Screening abstracted [facility] Provider HEALTH MAINTENANCE Final Result * (ABNORMAL) Lipid panel (03/24/2023) [facility] LDL/HDL Ratio 4 0 - 4 Triglycerides 66 0 - 150 mg/dL Cholesterol 113 0 - 200 mg/dL HDL 29(A) >=40 mg/dL LDL Cholesterol 71 0 - 100 mg/dL Blood Venous blood specimen / Unknown [facility] Provider LAB BLOOD ORDERABLES Pretty l Result * Cervical Cancer Screening: HPV (06/18/2022) [facility] Cervical Cancer Screening: HPV abstracted, negative [facility] Provider HEALTH MAINTENANCE Final Result * Hepatitis C Screening (06/23/2018) [facility] Hepatitis C Screening abstracted [facility] Provider HEALTH MAINTENANCE Final Result * SCR MAMMO BI INCL CAD (05/26/2018 [...] category Low (<15%) Procedure Note Kristin Frausto, DO - 04/01/2022 This is a summary report. [...] (<15%) Mary Perez MD IMG XR PROCEDURES Final Res ult from Last 3 Months or Most Recently Relevant to Health Maintenance Care Teams Horticultural Services Supervisor Relationship Specialty Start Date End Date Emmanuelle Upton MD [address] [place] [phone] PCP - General 06/18/22
== END 2024-05-31 10:07 | disposition home or self-care (01) ==
LOC: HO.HOSX 10:06
PROVIDERS: Visit Provider Orthopaedic Surgery
DX: M32.9 Systemic lupus erythematosus, unspecified (principal); M25.531 Pain in right wrist; S52.501A Unspecified fracture of the lower end of right radius, initial encounter for closed fracture; S52.611A Displaced fracture of right ulna styloid process, initial encounter for closed fracture
CPT/HCPCS: 73110; 99212

== ENCOUNTER 2024-05-31 14:46 | Outpatient (AMB) | payer OTHER, SELFPAY ==
--- NOTE | 2024-05-31 14:56 | A.OFFVIS_ITS ---
Vital Signs 05/31/24 14:59 Height 5 ft 6 in Weight 121 lb BMI 19.5 Intake Visit Reasons: OV - RT distal radius fx DOI 05/02/24 Intake Note: Elinor is a 53 year old female presents today for a ROM check status post right distal radius fx, DOI 05/02/24. At last visit patient was placed on a short arm cast. Today patient reports numbness on the dorsal aspect of her right wrist. 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 She was scheduled for an ORIF on 05/12/24, which she no-show the day of surgery. Pain in her wrist has improved significantly. She does appreciate some numbness to the dorsal ulnar aspect of her wrist. She is a smoker. She says her car was towed on her DOS and that is why she had to cancel. 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 Vitamin D deficiency GERD (gastroesophageal reflux disease) H/O Russel thyroiditis SLE (systemic lupus erythematosus) Anxiety Organic depressive disorder Menorrhagia Pleural effusion Consolidation lung Abnormal chest CT Allergic rhinitis Asthma COVID Surgical History H/O tubal ligation Presence of silicone breast implant History of esophagogastroduodenoscopy (EGD) Family History Mother Asthma CAD (coronary artery disease) Myocardial infarct Hypertension Hypercholesteremia Sister Arthritis Sister Diabetes Social History Current occupational status: employed Current occupation: [employer] / rt hand Physical Exam Vital Signs: BMI result Body Mass Index 19.5 Const General: no acute distress and alert Orientation/consciousness: patient oriented x3 Neuro General: patient oriented x3 Extrem Other: Evaluation of Right Upper Extremity: The patient is alert, oriented, and in no acute distress Neuro: Median, Ulnar, Radial nerves motor and sensory intact and sensation is normal to the tips of all digits Vascular: Cap refill brisk ROM: She can make a fist and extend all her digits No tenderness at the fracture site Pronation ~60 degrees Supination ~50 degrees DRUJ stable on exam Stiffness in flexion & extension Resolved swelling & ecchymosis Radiographs: 3 views of the right wrist were taken and viewed by me today in clinic. They showed a displaced right distal radius fracture with ~15 degrees apex volar angulation. She also has an ulnar styloid fracture. Good evidence of interval bony healing Psych Appearance: grossly normal Affect: normal affect Attitude: cooperative Assessment & Plan Assessment & Plan (1) Distal radius fracture, right: Code(s): S52.501A - Unspecified fracture of the lower end of right radius, initial encounter for closed fracture Category: Medical (2) Fracture of right ulnar styloid: Code(s): S52.611A - Displaced fracture of right ulna styloid process, initial encounter for closed fracture Category: Medical (3) SLE (systemic lupus erythematosus): Code(s): M32.9 - Systemic lupus erythematosus, unspecified Category: Medical Plan Assessment & Plan: 1. Right distal radius fracture, S/P fall, DOI: 05/02/24 2. Right ulnar styloid fracture, S/P fall, DOI: 05/02/24 I educated her about this condition I discussed operative and non-operative treatment options She was initially scheduled for surgery on 05/12/24, but she cancelled this procedure as her car was towed. Last visit we had a long discussion with her concerning surgery, which would require a distal radius osteotomy. She is also a smoker. We decided to continue to manage this fracture non operatively. She was fitted for a velcro wrist splint, to be worn for the next 4 weeks. She will come out of her splint frequently at home to work on wrist range of motion and should not wear her splint to bed. In 2 weeks she should stop wearing the splint around the house all together. I ordered OT hand therapy to work on ROM & stretching exercises. 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 She was given a note for work to return on light duty, with a 4lb weight limit with her RUE for the next 4 weeks, no impact activities, effective 06/06/24. She will follow up in 4 weeks for a ROM check. This can be done with MAYURI Erwin. Anticipate return to full duty at that time. Scribed for Guerita Holley MD by Chriss Abreu, medical record coder, on 05/31/24 at 3:15 PM, EST. Orders: Orders XR wrist RT min 3V Today M25.531 - Pain in right wrist OT Evaluation and Treatment Today M32.9 - Systemic lupus erythematosus, unspecified, S52.501A - Unspecified fracture of the lower end of right radius, initial encounter for closed fracture, S52.611A - Displaced fracture of right ulna styloid process, initial encounter for closed fracture Coding Level of Care Code Global (41772) Diagnoses Distal radius fracture, right S52.501A Fracture of right ulnar styloid S52.611A SLE (systemic lupus erythematosus) M32.9
[2024-05-31 14:59] VITALS: BMI 19.5
--- OUTSIDE RECORDS SUMMARY | 2024-05-31 15:47 | XMS_ITS | Clinical Summary ---
Author Organization [facility] Health & [facility] lin Address [address] [place] [address] Care Team Providers Care Machine Iii Coremaker Name Role Phone Unavailable Primary Care Provider [...] Adults 18 yrs or above (or HM Modifier)([facility]) 12/10/1987 Hepatitis C Virus Infection in Adolescents and Adults: Screening (or Modifier) ([facility]) 12/10/1987 [facility] Screening Reminder: Beba torres for all adults ([facility]) 12/10/1987 Tobacco Smoking Cessation: i n Adults excluding Women: Behavioral and Pharmacotherapy Interventions ([facility]) 12/10/1987 DTaP/Tdap/Td Vaccines ([facility]) (1 - Tdap) 1988 Cervical Cancer Screenin 1-65 yrs of age (or Modifier) 1990 Cervical Cancer Screening: P ap every 3 yrs pts age 21-65 1990 Cervical Cancer: Pap Screeni ng with Modifier timing ([facility]) 1990 Cervical Cancer: hrHPV alone or with cotesting Pap for Pts 30-65yrs screening every 5yrs ([facility]) 1990 Colorectal Cancer Screening 45 -75 Yrs (or HM Modifier) 2014 Colorectal Cancer: FLEXIBLE SIGMOIDOSCOPY Screening every 5 yrs 2014 Colorectal Cancer: Fecal Immunochemical Test (FIT) Annually [facility] 2014 Colorectal Cancer: High-sens itivity gFOBT Screening Annually [facility] 2014 Colorectal Cancer: Stool Col oguard Screening every 3 yrs 2014 Colorectal Cancer:CT Colonog rajinder Screening every 5 yrs 2014 Lipid Screening: Every 5 yrs for Women aged 45+ (or HM Modifier) ([facility]) 12/10/2015 Breast Cancer: Screening Beba ually age 50-74 yrs (or HM Modifier)([facility]) 12/10/2019 Zoster/Shingles Vaccine Seri es Screening: Adults aged 18+ yrs (or HM Modifiers)([facility]) (1 of 2) 12/10/2019 Flu Vaccination: Yearly for ages 18mos through 64 years (or Modifier)([facility]) 11/12/2023 COVID-19 Vaccine Screening: Initial Series and Booster Status ([facility]) (2023- season) 2023 Pneumococcal Vaccination Scr eening: Pts 0-19 & 19-64 yrs of age ([facility]) Aged Out No longer eligible based on patient's age to complete this topic Medical Devices Not on file
--- OUTSIDE RECORDS SUMMARY | 2024-05-31 15:47 | XMS_ITS | Clinical Summary ---
Author Organization [facility] 444 [facility] Address [address] [place] [phone] Phone Care Team Providers Care Roof Fixer Name Role Phone Emmanuelle Upton MD Primary Care Provider [phone] [phone] Allergies No known active allergies Medications ergocalciferol [...] PROCEDURE: HISTORICAL TUBAL LIGATION ESOPHAGOGASTRODUODENOSCOPY 07/27/2012 PROCEDURE: [place] ESOPHAGOGASTRODUODENOSCOPY TRANSORAL DIAGNOSTIC; COMMENT: Dr. Chip Randall [...] disease Maternal Grandmother Asthma Mother diabetes, CAD, [place]-pacemaker, HTN, hypercholesterolemia Diabetes Sister 1 Diabetes Sister [...] Visit Ob[facility] [address] [place] [address] Roselia Vigil DO [address] [place] [address] Health Maintenance Due Date Last Done Comments [...] Maintenance Results * Depression Screening (03/24/2023) Pathologist [facility] Depression Screening abstracted [facility] Provider HEALTH MAINTENANCE Final Result * (ABNORMAL) Lipid panel (03/24/2023) [facility] LDL/HDL Ratio 4 0 - 4 Triglycerides 66 0 - 150 mg/dL Cholesterol 113 0 - 200 mg/dL HDL 29(A) >=40 mg/dL LDL Cholesterol 71 0 - 100 mg/dL Blood Venous blood specimen / Unknown [facility] Provider LAB BLOOD ORDERABLES Pretty l Result * Cervical Cancer Screening: HPV (06/18/2022) [facility] Cervical Cancer Screening: HPV abstracted, negative [facility] Provider HEALTH MAINTENANCE Final Result * Hepatitis C Screening (06/23/2018) [facility] Hepatitis C Screening abstracted [facility] Provider HEALTH MAINTENANCE Final Result * SCR [...] Recently Relevant to Health Maintenance Care Teams Roof Fixer Relationship Specialty Start Date End Date Emmanuelle Upton MD [address] [place] [phone] PCP - General 06/18/22
== END 2024-05-31 15:37 | disposition home or self-care (01) ==
PROVIDERS: Visit Provider Orthopaedic Surgery
DX: S52.501A Unspecified fracture of the lower end of right radius, initial encounter for closed fracture (principal); S52.611A Displaced fracture of right ulna styloid process, initial encounter for closed fracture; M32.9 Systemic lupus erythematosus, unspecified
CPT/HCPCS: 99213

== ENCOUNTER → 2024-05-31 14:53 | Outpatient (BNV) | payer OTHER, SELFPAY | PROVIDERS: Visit Provider Radiology Diagnostic Radiology | DX: M25.531 Pain in right wrist (principal) | CPT/HCPCS: 73110 ==

== ENCOUNTER 2024-06-28 14:10 | Outpatient (AMB) | payer OTHER, SELFPAY ==
--- NOTE | 2024-06-28 14:13 | MHC.OFFVIS ---
Vital Signs 06/28/24 14:14 Height 5 ft 6 in Weight 121 lb BMI 19.5 Intake Visit Reasons: OV - RT distal radius fx DOI 05/02/24-ROM check Intake Note: Elinor is a 53 year old female presents today for a ROM check status post right distal radius fx, DOI 05/02/24. States she currently has pain when bending wrist, she continues to wear brace with activity. Allergies No Known Allergies Allergy (Verified 05/31/24 15:03) HPI HPI OV - RT distal radius fx DOI 05/02/24-ROM check: Details: Elinor is a 53 year old right hand dominant woman who returns for her right distal radius & ulnar styloid fracture, DOI: 05/02/24. She was scheduled for an ORIF on 05/12/24, which she no-show the day of surgery. She continues to complain of pain in her wrist, worse with motion. She continues to wear her brace daily. She has not yet started OT hand therapy, she says she showed up late to her appointment and had to reschedule for later this week. She is a smoker. She has not been working since her injury. 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 Vitamin D deficiency GERD (gastroesophageal reflux disease) H/O Russel thyroiditis SLE (systemic lupus erythematosus) Anxiety Organic depressive disorder Menorrhagia Pleural effusion Consolidation lung Abnormal chest CT Allergic rhinitis Asthma COVID Surgical History H/O tubal ligation Presence of silicone breast implant History of esophagogastroduodenoscopy (EGD) Family History Mother Asthma CAD (coronary artery disease) Myocardial infarct Hypertension Hypercholesteremia Sister Arthritis Sister Diabetes Social History Current occupational status: employed 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 occupation: [employer] / rt hand Physical Exam Vital Signs: BMI result Body Mass Index 19.5 Const General: no acute distress and alert Orientation/consciousness: patient oriented x3 Neuro General: patient oriented x3 Extrem Other: Evaluation of Right Upper Extremity: The patient is alert, oriented, and in no acute distress Neuro: Median, Ulnar, Radial nerves motor and sensory intact and sensation is normal to the tips of all digits Vascular: Cap refill brisk ROM: She can make a fist and extend all her digits DRUJ stable on exam Pronation ~60 degrees Supination ~50 degrees Flexion ~20 degrees Extension ~30 degrees Her fracture is completely nontender to palpation. Radiographs: 3 views of the right wrist from last visit were viewed by me today in clinic. They showed a displaced right distal radius fracture with ~15 degrees apex volar angulation. She also has an ulnar styloid fracture. Good evidence of interval bony healing Psych Appearance: grossly normal Affect: normal affect Attitude: cooperative Assessment & Plan Assessment & Plan (1) Distal radius fracture, right: Code(s): S52.501A - Unspecified fracture of the lower end of right radius, initial encounter for closed fracture Category: Medical (2) Fracture of right ulnar styloid: Code(s): S52.611A - Displaced fracture of right ulna styloid process, initial encounter for closed fracture Category: Medical (3) SLE (systemic lupus erythematosus): Code(s): M32.9 - Systemic lupus erythematosus, unspecified Category: Medical Plan Assessment & Plan: 1. Right distal radius fracture, S/P fall, DOI: 05/02/24 2. Right ulnar styloid fracture, S/P fall, DOI: 05/02/24 I educated her about this condition I discussed operative and non-operative treatment options She was initially scheduled for surgery on 05/12/24, but she cancelled this procedure as her car was towed. Her fracture was then managed non operatively. Last visit we had a long discussion with her concerning surgery, which would require a distal radius osteotomy. She is also a smoker. We decided to continue to manage this fracture non operatively. I again told her that she needs to completely discontinue her splint. We went over exercises for hand and wrist range of motion in clinic today I encouraged her to work on these exercises at home, and she should be doing the exercises about every hour while she is awake. She has not yet started her OT hand therapy. I explained the importance of OT and improving her ROM. She works at [employer] in [employer] services. She was given a note for work to return on light duty, with a 10lb weight limit and time off for OT hand therapy, for the next 4 weeks, effective 07/04/24. She will follow up in 5 weeks for a ROM check with MAYURI Erwin. Anticipate return to full duty at work at that time. Scribed for Guerita Holley MD by Chriss Abreu, medical research assistant, on 06/28/24 at 2:30 PM, EST. Coding Level of Care Code Global (93676) Diagnoses Distal radius fracture, right S52.501A Fracture of right ulnar styloid S52.611A SLE (systemic lupus erythematosus) M32.9
[2024-06-28 14:14] VITALS: BMI 19.5
== END 2024-06-28 14:54 | disposition home or self-care (01) ==
LOC: HO.HOS 14:11
PROVIDERS: Visit Provider Orthopaedic Surgery
DX: S52.501A Unspecified fracture of the lower end of right radius, initial encounter for closed fracture (principal); S52.611A Displaced fracture of right ulna styloid process, initial encounter for closed fracture; M32.9 Systemic lupus erythematosus, unspecified
CPT/HCPCS: 99213

== ENCOUNTER → 2024-06-28 14:10 | Outpatient (BNVA) | payer OTHER, SELFPAY | PROVIDERS: Visit Provider Orthopaedic Surgery | DX: M25.531 Pain in right wrist (principal); S52.501D Unspecified fracture of the lower end of right radius, subsequent encounter for closed fracture with routine healing; S52.611D Displaced fracture of right ulna styloid process, subsequent encounter for closed fracture with routine healing; M32.9 Systemic lupus erythematosus, unspecified; X58.XXXD Exposure to other specified factors, subsequent encounter | CPT/HCPCS: 99212 ==

== ENCOUNTER 2024-07-12 12:36 | Outpatient (RCR) | payer OTHER, SELFPAY ==
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
--- NOTE | 2024-07-20 13:37 | MHC.OT.DC ---
[address] [phone] F: [phone] Occupational Therapy Discharge Note Patient Name: Elinor Garcia Provider: Dr Guerita Holley Diagnosis: Right Distal Radius Fracture, Ulnar Styloid Fracture Date of Evaluation: 07/12/24 Date of Discharge: 07/20/24 Treatments to Date: 1 Cancellations to Date: No Shows to Date: 5 Discharge Status: Visit Non-compliance Discharge Summary: Elinor was seen in OT for initial OT assessment after right distal radius fracture. She missed first three scheduled OT evals and was finally seen 07/12/24. She has since no-showed for two follow up OT visits, and we will be discharging at this time per non-compliance policy. She has been given home exercise program. Electronically Signed By: LUIS Torres/Adele FORBES Reviewed/agree with student documentation: Therapist: Please Sign and return to therapist, thank you for your referral.
== END 2024-07-20 13:38 | disposition home or self-care (01) ==
LOC: HO.OT 12:36
PROVIDERS: Visit Provider Orthopaedic Surgery
DX: S52.611D Displaced fracture of right ulna styloid process, subsequent encounter for closed fracture with routine healing (principal); S52.501D Unspecified fracture of the lower end of right radius, subsequent encounter for closed fracture with routine healing; M32.9 Systemic lupus erythematosus, unspecified
CPT/HCPCS: 97110; 97165